=== PATIENT | male | born 1935 | race Caucasian/White ===

== ENCOUNTER 2016-07-30 20:12 | Inpatient (IN) | payer MEDICARE, MEDICAID ==
[~2016-07-30] VITALS: Ht 177.8 cm; Wt 82.4 kg
[~2016-07-30 20:12] MED LIST: ACET-171 PO; ACET325T51 PO; ASPI-973 PO; ATOR20TA PO; BENZ-12 PO; BISA10SU61 RC; CARB1TAB14 PO; CHOL500011 PO; DOCU-41 PO; FUR20 PO; GUAI473S22 PO; HYDR-4003 PO; IPRA0.2S51 PO; LORA0.5T PO; MAGN400O4 PO; METO25TA6 PO; MIRT15TA6 PO; MULT-620 PO; NA P133E23 RC; NIAC100T2 PO; PANT40TA3 PO; POTA20LI2 PO; PRAM0.5T3 PO; SALI45SP MT; SENN-133 PO; SPIR25TA3 PO; SPIR50TA2 PO; SUCR1ORA PO; TIZA2TAB3 PO; UBID1CAP3 PO; ZOF8 PO; [UNRECOGNIZED DRUG - OTHER] PO
--- NOTE | 2016-07-30 20:15 | ED.REPORT ---
HPI-Dyspnea / Wheezing Date of Service Jul 30, 2016 ED Provider: MD Cornelius This is an 80 year old male with a history of sleep apnea, HTN, CHF, and Parkinson's who is hemiplegic brought to the ED by EMS due to cough. Pt sent from [facility] after he appeared to be aspirating. Pt is awake but non-verbal, this is baseline. DNR/DNI. Nursing Notes Stated Complaint: COUGHING Nursing Notes Reviewed: Yes Allergies: Coded Allergies: diphenhydramine (Verified Allergy, Severe, ITCHY EYES AND THROAT SWELLING , 10/27/15) dipyridamole (Verified Allergy, Unknown, unknown, 10/27/15) Scheduled ([Med Plus 2.0]) 120 ML PO TID Acetaminophen (Acetaminophen) 500 Mg Tablet 1,000 MG PO BID Aspirin (Aspirin) 81 Mg Tablet 81 MG PO QAM Atorvastatin (Lipitor) 20 Mg Tablet 20 MG PO DAILY Carbidopa/Levodopa 25-100 mg (Carbidopa/Levodopa 25-100 mg) 1 Each Tablet 2 EACH PO 5XD Cholecalciferol (Vitamin D3) (Vitamin D3) 5,000 Unit Tablet 5,000 UNIT PO QPM Docusate Sodium (Colace) 100 Mg Capsule 100 MG PO QAM Furosemide (Furosemide) 20 Mg Tab 20 MG PO QAM Magnesium Hydroxide (Milk of Magnesia) 400 Mg/5 Ml Oral.susp 2 ML PO QAM Metoprolol Tartrate (Metoprolol Tartrate) 25 Mg Tablet 12.5 MG PO BID Mirtazapine (Mirtazapine) 15 Mg Tablet 15 MG PO HS Multivitamin with Minerals (Totalday Multiple) 1 Each Tablet.er 1 EACH PO QAM Niacin (Niacin) 100 Mg Tablet 100 MG PO QAM Pantoprazole DR (Pantoprazole DR) 40 Mg Tablet.dr 40 MG PO BID Potassium Chloride (Potassium Chloride) 20 Meq/15 Ml Liquid 10 MEQ PO TIDWM Pramipexole Dihydrochloride (Mirapex) 0.5 Mg Tablet 0.5 MG PO DAILY Saliva Stimulant Agents Comb.3 (Biotene Moisturizing Mouth) 44.3 Ml [place] [facility] 15 ML MT QID Spironolactone (Spironolactone) 50 Mg Tablet 50 MG PO QAM take with 25mg tab for total dose of 75mg daily Spironolactone (Spironolactone) 25 Mg Tablet 25 MG PO QAM take with 50mg tab for total dose of 75mg daily Sucralfate (Sucralfate) 1 Gm/10 Ml Oral.susp 1,000 MG PO ACHS Ubidecarenone/Vitamin E (Co Q-10 50 mg Softgel) 1 Each Capsule 1 EACH PO QAM Scheduled PRN Acetaminophen (Acetaminophen) 325 Mg Tablet 650 MG PO Q4H PRN PRN For Fever Benzonatate (Tessalon Perle) 100 Mg Capsule 100 MG PO BID PRN PRN For Cough Bisacodyl (Dulcolax Rectal) 10 Mg Supp.rect 10 MG RC DIRECTED PRN PRN For Constipation Docusate Sodium (Colace) 100 Mg Capsule 100 MG PO HS PRN PRN For Constipation Guaifenesin/Codeine Phosphate (Guaifenesin AC Cough Syrup) 473 Ml Liquid 5 ML PO QID PRN PRN For Cough Hydrocodone-Acetaminophen 5-325 mg (Hydrocodone-Acetaminophen 5-325 mg) 1 Each Tablet 1 EACH PO Q4H PRN PRN For Pain Ipratropium Ogden (Ipratropium [place] Inhalant Solution) 0.2 Mg/1 Ml Solution 1 ML PO QID PRN PRN For Shortness of Breath Lorazepam (Lorazepam) 0.5 Mg Tablet 0.5 MG PO QID PRN PRN For Anxiety or Agitation Magnesium Hydroxide (Milk of Magnesia) 400 Mg/5 Ml Oral.susp 30 ML PO DIRECTED PRN PRN For Constipation Na Phos,M-B/Na Phos,Di-Ba (Fleet Enema) 133 Ml Enema 133 ML RC DIRECTED PRN PRN For Constipation Ondansetron (Zofran) 8 Mg Tablet 8 MG PO QID PRN PRN For Nausea Sennosides (Senna) 8.6 Mg Tablet 17.2 MG PO HS PRN PRN For Constipation Tizanidine (Tizanidine) 2 Mg Tablet 2 MG PO TID PRN PRN For Spasm General Time Seen by MD: 20:15 Chief Complaint Cough Hx Obtained From: Patient, EMS Arrived By: Ambulance Sudden in Onset?: Yes Onset Occurred: Just prior to arrival Symptom Duration: Since onset Severity: Current: No pain currently Pertinent Negative: Pt denies other symptoms Recent Healthcare: No recent doctor visit, No recent hospitalization Similar Sx Previous: No Past Medical History Past Medical History Notes: DNR/DNI Past Medical History Parkinson's disease Hx of pneumoia Sleep apnea Hypertension CHF Hx of UTIs Hemiplegia Past Surgical History Reports: Angioplasty, CABG Reports: Pacemaker insertion Family History noncontributory Smoking History Never Smoker Social History Lives at [facility] Other Social History: Good social support, Local resident Ambulatory Status Independent Review of Systems Unable to Obtain ROS Patient condition Respiratory: Reports: Non-productive cough Physical Exam Initial Vital Signs Vital Signs (First) Date Time Temp Pulse Resp B/P Pulse Ox O2 Delivery O2 Flow Rate FiO2 07/30/16 20:18 36.8 76 21 138/73 99 Non-Rebreather 15 - Initial VS: Reviewed Head / Eyes: Atraumatic, Normocephalic, PERRL ENT: Mucous membranes moist, Conjunctiva normal, No scleral icterus Extremities: Vascular intact, Neuro intact, No swelling, No tenderness Skin: Warm, Dry, No cyanosis General/Constitutional: Awake Non-verbal and coughing, vomit present around mouth. Chronically ill-appearing. Neck: Atraumatic, Supple, No meningismus, Full range of motion, No swelling, Non-tender, No masses Diminished Breath Sounds: Positive: Decreased bilateral Cardiovascular: Heart rate NL, Regular rhythm, Heart sounds NL, Peripheral circulation NL Interpretation & Diagnostics Lab Results Interpretation Result Diagram: 07/30/16203007/30/162030 Test 07/30/16 20:15 07/30/16 20:31 Hold Purple Top Tube Received (Received) Hold Blue Top Tube Received (Received) Hold Red Top Tube Received (Received) Hold [place] Top Tube Received (Received) White Blood Count 12.0th/mm3 (3.8-10.1) Red Blood Count 5.77mil/mm3 (4.40-5.80) Hemoglobin 14.9g/dL (13.8-17.2) Hematocrit 46.8% (41.0-50.0) Mean Corpuscular Volume 81.1fL (81-100) Mean Corpuscular Hemoglobin 25.8pg (27.0-35.0) Mean Corpuscular Hemoglobin Concent 31.8% (32.0-37.0) Red Cell Distribution Width 16.3% (12.3-15.4) Platelet Count 218bil/L (150-400) Neutrophils (%) (Auto) 66.4% (40-74) Lymphocytes (%) (Auto) 19.2% (14-46) Monocytes (%) (Auto) 11.4% (4-12) Eosinophils (%) (Auto) 2.3% (0-5) Basophils (%) (Auto) 0.4% (0-3) Sodium Level 139mEq/L (134-144) Potassium Level 4.9mEq/L (3.5-5.2) Chloride Level 100mEq/L (97-108) Carbon Dioxide Level 23mmol/L (18-29) Blood Urea Nitrogen 24mg/dL (8-27) Creatinine 1.19mg/dL (0.76-1.27) Estimat Glomerular Filtration Rate 62mL/min (>59) Glucose Level 123mg/dL (60-99) Calcium Level 9.5mg/dL (8.5-10.1) Total Bilirubin 0.3mg/dL (0.0-1.2) Aspartate Amino Transf (AST/SGOT) 20U/L (0-50) Alanine Aminotransferase (ALT/SGPT) < 5U/L (0-44) Alkaline Phosphatase 116U/L (25-160) Total Protein 7.3g/dL (6.4-8.4) Albumin 3.8g/dL (3.4-5.0) X-Ray Chest Interpretation Chest Xray Interpretation: IMPRESSION: 1. Marked gaseous distention of the stomach. 2. Small right pleural effusion. 3. Pulmonary scar or a left lateral pulmonary mass. If further characterization is warranted, CT of the chest may be helpful. Dictated by: Savannah Barr M.D. on 07/30/2016 at 20:51 Approved by: Savannah Barr M.D. on 07/30/2016 at 20:54 Re-Eval/Medical Decision Med Decision/Clinical Course 80-year-old male with past medical history of Parkinson's disease, CHF, hemiplegia, hypertension, who is currently DO NOT RESUSCITATE and DO NOT INTUBATE brought in from skilled nursing after an aspiration event. Differential diagnosis includes but is not limited to aspiration versus pneumonia versus progression of chronic disease versus leukocytosis. Labs are remarkable for mild leukocytosis, normal CMP. Chest x-ray shows right-sided pleural effusion, which is likely secondary to aspiration. At this time, I will not start antibiotics, as he does not show signs of infection, though I believe he will likely develop aspiration pneumonia. For this reason, I have admitted him to the hospital for further monitoring and likely initiation of antibiotic treatment. He had his are aware and amenable to plan. Re-Evaluation/Progress #1: Time of Eval: 21:08 Re-Evaluation/Progress Note: Discussed patient care with spouse present in the room. Re-Evaluation/Progress #2: Time of Eval: 21:32 Re-Evaluation/Progress Note: Discussed need for admission with spouse present in the room. Consultation : Referral / Consult Name: Sandrine Cormier DO Consulted With: Hospitalist Call Returned at: 21:40 Conveyor Loader: Accepts admit Counseled Regarding: Diagnosis, Lab results, Need for follow-up, Need for admission Discharge & Departure Impression: Primary Impression: Aspiration into airway Encounter type: initial encounter Qualified Code: T17.908A - Unspecified foreign body in respiratory tract, part unspecified causing other injury, initial encounter Disposition: ADMITTED TO HOSPITAL Discharge Condition All VS Reviewed: Yes Condition: Stable Referrals: Denice Pedersen MD (PCP) Scribe Attestation Portions of this note were transcribed by Fany Meredith. I, Dr. Shields personally performed the history, physical exam and medical decision-making; I reviewed and confirmed the accuracy of the information in the transcribed note. Signed by: francine Newton. 07/30/2016, 22:00. Heather Shields MD Jul 30, 2016 20:15 FANY MEREDITH Jul 30, 2016 20:24
[2016-07-30 20:18] VITALS: BP 138/73; PULSE 76; RESP 21; O2SAT 99
[2016-07-30] MEDS ORDERED: Ondansetron 2 mg/mL 2 mL Inj IVPUSH ONE (20:20)
[2016-07-30 20:39] LABS: BASOPHILS % (AUTO) 0.4 % (0-3); EOSINOPHILS % (AUTO) 2.3 % (0-5); MONOCYTES % (AUTO) 11.4 % (4-12); Mean Corpuscular Hemoglobin 25.8 pg (27.0-35.0); Mean Corpuscular Volume 81.1 fL (81-100); NEUTROPHILS % (AUTO) 66.4 % (40-74); Platelet Count 218 bil/L (150-400)
--- NOTE | 2016-07-30 20:56 | DRSVH ---
PROCEDURE: X-RAY CHEST ONE VIEW, PORTABLE ([id number]) INDICATIONS: aspiration TECHNIQUE: One view of the chest was acquired. COMPARISON: [facility], CR, XR CHEST 1VW (PORTABLE), 11/05/2015, 17:18. FINDINGS: Surgical changes and devices: Patient is status post median sternotomy. Lungs and pleura: There is a small right pleural effusion. Focal scar or pulmonary radiopacity is pre sent within the lateral aspect of the left lower lung. Mediastinum: Mediastinal contours appear normal. Heart size is mildly enlarged. Bones and chest wall: No suspicious bony lesions. There is marked gaseous distention of the stomach. IMPRESSION: 1. Marked gaseous distention of the stomach. 2. Small right pleural effusion. 3. Pulmonary scar or a left lateral pulmonary mass. If further characterization is warranted, CT of t he chest may be helpful. Dictated by: Savannah Barr M.D. on 07/30/2016 at 20:51 Approved by: Savannah Barr M.D. on 07/30/2016 at 20:54
[2016-07-30 21:43] VITALS: BP 110/58; PULSE 63; RESP 18; O2SAT 92
[2016-07-30] MEDS ORDERED: Alum-Mag Hydrox-Simeth 30 mL Suspension PO PRN (21:45)
[2016-07-30] MEDS ORDERED: Ondansetron 2 mg/mL 2 mL Inj IVPUSH PRN (21:45)
[2016-07-30] MEDS ORDERED: Polyethylene Glycol (PEG) 17 Gm Powder PO PRN (21:45)
[2016-07-30 22:14] VITALS: BP 123/66; PULSE 64; RESP 18; O2SAT 92
[2016-07-30 23:46] VITALS: BP 122/61; PULSE 62; RESP 20; O2SAT 95
[2016-07-30 23:49] VITALS: BP 178/76; PULSE 68; RESP 24; O2SAT 91
[2016-07-30 23:57] VITALS: PULSE 85
[2016-07-31] VITALS (11 sets, daily range): BP systolic 117–143; BP diastolic 58–82; PULSE 75–92; RESP 16–20; O2SAT 94–96
[2016-07-31] MEDS ORDERED: HYDROcodone-APAP 5-325 mg Tablet PO PRN (00:25)
--- NOTE | 2016-07-31 00:31 | NUR ---
ADMIT Pt arrived on floor at 2345 via gurney from [facility]. Per , pt is total care with transferring, feeding, bathing, etc. Per , pt is oriented to self and place and knows the year. Transferred to bed via slide board. Unable to assess orientation at this time--pt is moaning continuously. Pt appears to not be in pain, though is constantly coughing. Suctioning PRN. Continuing care.
--- NOTE | 2016-07-31 00:52 | PCM.HPMED ---
Subjective Date of Service Jul 30, 2016 Primary Provider: Admitting Physician: Sandrine Cormier DO Primary Care Physician: Denice Pedersen MD Attending Physician: Sandrine Cormier DO Admit Status: From the Emergency Department Chief Complaint: Aspiration History of Present Illness: Patient is an 80 year old male with a history of Parkinson's disease, hemiplegia , CAD, HTN, and anemia. He presented to [facility] on 07/30/16 from [facility] where he is a permanent resident. Report given to the ED staff was that the patient had an episode of vomiting that he most likely aspirated. Additional history is limited as the patient is somnolent throughout this H&P. The patient 's is at the bedside but was not present for the incident. The report she received was that the patient had been coughing and wheezing, then had an episode of vomiting. The reports approximately 1 week history of congested -sounding cough. She was not informed of any fever or chills, no other episodes of vomiting or diarrhea. There has been a mild decrease in appetite over the last few days. He has a history of aspiration causing pneumonia. At baseline the patient is wheelchair bound with no use of his legs. He has also lost much of the use of his arms and is fed by others. He does eat regular food. His speech is quite slurred but he can communicate some. He does use 2L O2 at baseline. In the ED the patient is afebrile, heart 76, respiratory rate 21, blood pressure 138/73, and O2 saturation 99% on 15L via no-rebreather. Labs remarkable for WBC 12. Due to the patient's history of aspiration pneumonia, will be admitted for observation of development of pneumonia/pneumonitis. Review of Systems: A comprehensive review of systems was conducted with the patient and found to be negative except as above in the history of present illness. Allergies Coded Allergies: diphenhydramine (Verified Allergy, Severe, ITCHY EYES AND THROAT SWELLING , 10/27/15) dipyridamole (Verified Allergy, Unknown, unknown, 10/27/15) Home Medications From [facility] (07/25/16): Acetaminophen 650 mg every 4 hours as needed (NTE 3000mg in 24hours) Benzonatate 100 mg 2 times daily as needed Biotene Dry Mouth Oral Rinse mouthwash use 15ml and rinse mouth out 4 times daily Co Q-10 50 mg daily Docusate sodium 100 mg every day Guaifenesin AC 10 mg-100 mg/5 mL oral liquid take 5 milliliter by ORAL route every 4 hours as needed Hydrocodone 5 mg-acetaminophen 325 mg every 4 hours as needed for pain DuoNeb 0.5 mg-3 mg(2.5 mg base)/3 mL 4 times every day Lasix 20 mg every day Lorazepam 0.5 mg tablet 4 times every day as needed Metoprolol tartrate 12.5 mg 2 times every day Milk of Magnesia 400 mg/5 mL oral suspension take 2 ml by mouth daily for magnesium supplement Mirapex 0.5 mg tablet every bedtime for RLS Mirtazapine 30 mg every day before bedtime Multivitamin with minerals every day with food Niacin 100 mg every day with meals Omeprazole 20 mg every day before a meal Ondansetron 8 mg disintegrating tablet Q8H PRN Potassium chloride 40 mEq/15 mL oral liquid take 10 milliliter by oral route 3 times every day diluted in one-half glass (120 ml) of cold water or juice Rytary 48.75 mg-195 mg capsule,extended release take 3 capsule by oral route 3 times every day Sinemet 25 mg-100 mg tablet take 2 tablet by oral route 5 times every day Spironolactone 75 mg every day Tizanidine 2 mg 3 times daily as needed Vitamin D3 take 1 capsule by oral route every day PMH Parkinsons disease, Multiple system atrophy, Spastic hemiplegia affecting right dominant side Cervical dystonia Osteopenia History of TIA Benign essential hypertension Compression fracture of L2 Diverticulosis Congestive heart failure GERD Dementia Hyperlipidemia Depression BPH - Benign prostatic hypertrophy 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 Surgical History Dual chamber pacemaker placed 2010 CABG x 5 in 1989 Right arthroscopic knee surgery Cardiac cath - 1996 Cardiac cath with SUMA placed 2010 TURP Cataract extraction, bilateral Family History Brother - Parkinson's disease Three brothers with history of heart disease Father - MD in his 50s Mother - Parkinson's disease Social History Hx Alcohol Use: No Hx Substance Use: No Hx Tobacco Use: No Smoking Status: Never Smoker Living Arrangement: [facility] ([facility]) Exam Vital Signs Vital Sign - Last Date Time Temp Pulse Resp B/P Pulse Ox O2 Delivery O2 Flow Rate FiO2 07/30/16 22:14 64 18 123/66 92 Nasal Cannula 3 1/22/17 20:18 36.8 Exam Patient somnolent, no apparent distress Head atraumatic, normocephalic Mucus membranes dry, no oral thrush observed No cervical lymphadenopathy, neck supple, nontender No JVD noted Cardiac tones difficult to appreciate over loud sounds of breathing - appears to be in regular rate and rhythm with no murmur appreciated Lungs with coarse sounds heard throughout the anterior lung schaffer No abdominal tenderness, non-distended, normoactive bowel tones, soft Adams absent Radial pulses normal and equivalent bilaterally, unable to appreciate dorsalis pedis pulses bilaterally No cyanosis, clubbing or edema No ulcerations/open wounds; boots in place on feet to float heels in an effort to prevent ulceration Neuro testing cannot be done as patient is not awake and participating in exam Lab and Diagnostics Result Diagram: 07/30/16203007/30/162030 X-Rays, CTs and MRIs CXR: IMPRESSION: 1. Marked gaseous distention of the stomach. 2. Small right pleural effusion. 3. Pulmonary scar or a left lateral pulmonary mass. If further characterization is warranted, CT of the chest may be helpful. Dictated by: Savannah Barr M.D. on 07/30/2016 at 20:51 Assessment & Plan Patient is an 80 year old male with a history of Parkinson's disease, hemiplegia , CAD, HTN, and anemia. He presented to [facility] on 07/30/16 from [facility] where he is a permanent resident. Nursing noted an episode of vomiting tonight with high suspicion for aspiration. Patient has history of aspiration pneumonia. Admitted for observation and management. 1. Aspiration, acute, present on admission. - Patient with history of aspiration pneumonia. - Currently no change on chest x-ray. - Will begin Unasyn 1500 mg Q6H. - Continue to monitor chest x-ray, CBC, vitals. - Could consider speech therapy re-evaluation. - Continue supplemental O2 to maintain O2 saturation above 94%. Raman BARRON. 2. Parkinsons disease, chronic. - With multiple system atrophy, dementia, spastic hemiplegia affecting right dominant side, and cervical dystonia. - Dr. Dorian Gupta managing with Carbidopa-Levodopa, Mirapex, tizanidine and botox injections. - Will continue Sinemet 2 tablets five times daily, Mirapex HS, Tizanidine 2 mg PRN. 3. Hypertension, chronic, presume stable. - Continue metoprolol tartrate 12. mg BID, spironolactone 75 mg daily and Lasix 20 mg daily. - Will monitor BMP. 4. Depression, chronic, presume stable. - Continue mirtazapine 30 mg HS. 5. CAD s/p CABG, presume stable. - According to recent outpatient med list patient currently not taking anything for this. 6. GERD, chronic. - Continue pantoprazole 40 mg daily. 7. History of congestive heart failure, likely diastolic. - Last echo found from 2010 shows preserved EF. - Patient appears to be well compensated at this time. - Antiemetic available PRN. - Bowel regimen available PRN. - Tylenol available PRN mild pain, fever. - Hydrocodone-acetaminophen 5/325 mg available Q4 PRN pain. - Lorazepam available PRN anxiety/agitation. Patient admitted under observation status with expected length of stay less than 2 midnights for severity of present symptoms, complexities of treatment plan and risk for adverse events. PCP: Denice Pedersen MD Neurology: Dorian Gupta MD Resuscitation Status: DNR/DNI:Do Not Resuscitate/Intubate Attending Statement The patient was seen and examined together with house staff on 07/30/2016 and I agree with the history, exam and plan as outlined in the note above. copies to: Denice Pedersen MD, Jennifer E DO Jul 30, 2016 23:40 Sandrine Cormier DO Jul 31, 2016 01:33
[2016-07-31] MEDS ORDERED: UBID50TA PO (02:48)
[2016-07-31] MEDS ORDERED: OMEP20CA11 PO (03:02)
[2016-07-31] MEDS ORDERED: TAM75UDCAP PO (03:02)
[2016-07-31] MEDS ORDERED: 0.9% Sodium Chloride 250 ML ONE (03:13)
--- NOTE | 2016-07-31 03:15 | NUR ---
CALLED TO [facility] FOR PATIENT THAT HAD INCREASED SECRETIONS. PLACED NASAL TRUMPET. NT SUCTION WITH 14 LATVIAN.
[2016-07-31] MEDS: Ampicillin-Sulbactam Inj 1,500 MG in 0.9% Sodium Chloride 50 ML IV SCH ×3 (03:22→16:11)
[2016-07-31] MEDS ORDERED: Albuterol-Ipratropium 3 mL Inhalation Solution ONE (03:23)
[2016-07-31] MEDS ORDERED: SALI45SP MM (03:34)
[2016-07-31] MEDS ORDERED: POTA40LI2 PO (03:34)
[2016-07-31] MEDS ORDERED: LVCR25100 PO (03:36)
[2016-07-31] MEDS: SALIVA SUBSTITUTE PO SCH ×4 (05:41→21:11)
[2016-07-31] MEDS: Albuterol-Ipratropium 3 mL Inhalation Solution NEB SCH ×5 (07:18→20:24)
[2016-07-31 07:51] LABS: BASOPHILS % (AUTO) 0.1 % (0-3); EOSINOPHILS % (AUTO) 0 % (0-5); MONOCYTES % (AUTO) 6.2 % (4-12); Mean Corpuscular Hemoglobin 26.4 pg (27.0-35.0); Mean Corpuscular Volume 81.2 fL (81-100); Platelet Count 170 bil/L (150-400)
[2016-07-31 08:01] LABS: Magnesium 1.8 mg/dL (1.6-2.6)
[2016-07-31] MEDS ORDERED: Pantoprazole 40 mg ER24 Tablet PO SCH (08:30)
[2016-07-31] MEDS: Pantoprazole 40 mg ER24 Tablet PO SCH (08:30)
--- NOTE | 2016-07-31 09:11 | NUR ---
Social Work Initial Assessment: SW met with patient at bedside to discuss discharge plan. Patient unable to participate in assessment at this time. SW contacted patient Kimberly, who verified patient information. Patient is a 80 year old male admitted under observation status on 07/30/16 for aspiration. Patient payer as Medicare and [facility] secondary. Patient PCP as MD Pedersen. Patient is a resident of [facility] per and has resided at facility since 2015. Patient uses a wheelchair at facility. Patient states plan for patient to return back to facility at discharge. Choice list offered and declined. [place] contacted [facility], and left message with SNF rep to confirm if patient able to return back at discharge. Access provided. SW to follow. PLAN: Return back to [facility]. Patient is a group home resident. Access provided. SW to follow pending clinical course Mallory VALENTE Addendum: 07/31/16 at 09 by CLAUDE DE LUNA Amended: Links added. Addendum: 07/31/16 at 0919 by CLAUDE DE LUNA Patient accepted back to [facility] per SNF rep Elsie. STOREY to follow. Mallory Real
--- NOTE | 2016-07-31 12:22 | NUR ---
Case Management: IMM given and explained to pt's Kimberly at pt bedside at 11:00 am. Questions answered, copy provided. Original placed on hard chart. HELADIO Hansen RN
--- NOTE | 2016-07-31 16:09 | PCM.PNMED ---
Subjective Date of Service Jul 31, 2016 Subjective Patient was examined at bedside today. Patient's was present for the exam. Patient has limited ability to communicate as patient has Parkinson's with very severe slurred speech. The patient patient does not appear to be in any acute distress. Exam Vital Signs Vital Sign - Last Date Time Temp Pulse Resp B/P Pulse Ox O2 Delivery O2 Flow Rate FiO2 07/31/16 15:44 75 20 96 Nasal Cannula 4.50 07/31/16 12:31 37.9 143/73 Intake and Output 07/30/16 07/30/16 07/31/16 Cumulative From/Thru 15:00 23:00 07:00 07/31/16 00:10 - 07/31/16 06:28 Intake Total 82 ml 82 ml Balance 82 ml 82 ml Intake IV Total 82 ml 82 ml # Bowel Movements 1 1 Exam Physical Exam: GEN: Patient was awake, alert, in no acute distress HEENT: PERRLA, EOMI, Neck soft supple, trachea midline, nomocephalic/atraumatic CV: +S1/S2, RRR, Respiratory: Decreased breath sounds bilaterally most likely secondary to poor respiratory effort GI: Hypoactive bowel sounds, soft, compressible, patient appeared to grimace with palpation of the abdomen EXT: no c/c/e Skin: Warm and clammy IVs and Medications Medications Reviewed: Medications were reviewed in detail Medications Current Medications Al Hydrox/Mg Hydrox/Simethicone 30 ml Q6H PRN PO; Start 07/30/16 at 21:45 Ondansetron HCl 4 to 8 mg Q4H PRN IVPUSH; Start 07/30/16 at 21:45 Senna 17.2 mg BID PRN PO; Start 07/30/16 at 21:45 Polyethylene Glycol 17 gm DAILY PRN PO; Start 07/30/16 at 21:45 Albuterol/ Ipratropium 3 ml 3 ml QIDWA NEB Last administered on 07/31/16 15:44 ; Admin Dose 3 ML; Start 07/31/16 at 06:00 Ampicillin Sodium/ Sulbactam Sodium/ Sodium Chloride 50 ml @ 100 mls/hr Q6 IV Last administered on 07/31/16 07:40; Admin Dose 100 MLS/HR; Start 07/31/16 at 02:30 Acetaminophen 650 mg Q4H PRN PO; Start 07/31/16 at 00:25 Carbidopa/Levodopa 2 tablet 5XD PO; Start 07/31/16 at 06:00 Docusate Sodium 100 mg HS PRN PO; Start 07/31/16 at 00:25 Docusate Sodium 100 mg DAILY PRN PO; Start 07/31/16 at 00:25 Furosemide 20 mg DAILY PO; Start 07/31/16 at 08:30 Acetaminophen/ Hydrocodone Bitart 1 tablet Q4H PRN PO; Start 07/31/16 at 00:25 Lorazepam 0.5 mg QID PRN PO; Start 07/31/16 at 00:25 Metoprolol Tartrate 12.5 mg BID PO; Start 07/31/16 at 08:30 Mirtazapine 15 mg HS PO; Start 07/31/16 at 21:00 Pantoprazole 40 mg BID PO; Start 07/31/16 at 08:30; Stop 07/31/16 at 08:30; Status DC Pramipexole 0.5 mg DAILY PO; Start 07/31/16 at 08:30 Spironolactone 25 mg DAILY PO; Start 07/31/16 at 08:30; Stop 07/31/16 at 08:30; Status DC Spironolactone 50 mg DAILY PO; Start 07/31/16 at 00:25; Stop 07/31/16 at 01:30; Status DC Cyclobenzaprine HCl 5 mg TID PRN PO; Start 07/31/16 at 01:05 Pantoprazole 40 mg DAILY PO; Start 07/31/16 at 08:30 Spironolactone 75 mg DAILY PO; Start 07/31/16 at 08:30 Acetaminophen 650 mg 650 mg Q6H PRN RECTAL Last administered on 07/31/16t 12:40 ; Admin Dose 650 MG; Start 07/31/16 at 10:15 Sodium Chloride 1,000 ml @ 80 mls/hr [id number] IV; Start 07/31/16 at 15:55 Lab and Diagnostics Result Diagram: 07/31/16 0710 07/31/16 0710 X-Rays, CTs and MRIs CXR: IMPRESSION: 1. Marked gaseous distention of the stomach. 2. Small right pleural effusion. 3. Pulmonary scar or a left lateral pulmonary mass. If further characterization is warranted, CT of the chest may be helpful. Dictated by: Savannah Barr M.D. on 07/30/2016 at 20:51 Assessment & Plan Patient is an 80 year old male with a history of Parkinson's disease, hemiplegia , CAD, HTN, and anemia. Admitted for possible aspiration pneumonia Aspiration, acute, present on admission. -- Patient with history of aspiration pneumonia. -- Currently no change on chest x-ray will follow-up with CT -- Discontinue Continue Unasyn 1500 mg Q6H. -- We will start Zosyn every 12 as the patient does come from a nursing facility -- Continue to monitor labs -- Consult speech therapy re-evaluation. -- Continue supplemental O2 to maintain O2 saturation above 92%. -- Raman BARRON. Abdominal pain -- CT of the abdomen Parkinsons disease, chronic. -- With multiple system atrophy, dementia, spastic hemiplegia affecting right dominant side, and cervical dystonia. -- Dr. Dorian Gupta managing with Carbidopa-Levodopa, Mirapex, tizanidine and botox injections. -- Will continue Sinemet 2 tablets five times daily, Mirapex HS, Tizanidine 2 mg PRN. Hypertension, chronic, presume stable. -- Continue metoprolol tartrate 12. mg BID, spironolactone 75 mg daily and Lasix 20 mg daily. -- Will monitor BMP. Depression, chronic, presume stable. -- Continue mirtazapine 30 mg HS. CAD s/p CABG, presume stable. -- According to recent outpatient med list patient currently not taking anything for this. GERD, chronic. -- Continue pantoprazole 40 mg daily. History of congestive heart failure, likely diastolic. -- Last echo found from 2010 shows preserved EF. -- Patient appears to be well compensated at this time. -- Antiemetic available PRN. -- Bowel regimen available PRN. -- Tylenol available PRN mild pain, fever. -- Hydrocodone-acetaminophen 5/325 mg available Q4 PRN pain. -- Lorazepam available PRN anxiety/agitation. Disposition: The patient currently has an elevated white blood cell count consistent with infection. The patient does not seem to be responding well to Unasyn. Since the patient does come from a nursing facility will change the patient's antibiotic regimen to Zosyn. We will obtain CT of the chest and abdomen for further exploration. The patient has minimal capability of expressing himself. We will need to continue to monitor and treat. PCP: Denice Pedersen MD Neurology: Dorian Gupta MD Resuscitation Status: DNR/DNI:Do Not Resuscitate/Intubate Time spent Greater than 30 minutes Edith Ramos DO Jul 31, 2016 15:56
--- NOTE | 2016-07-31 16:58 | DRSVH ---
PROCEDURE: CT CHEST, ABDOMEN AND PELVIS WITH CONTRAST ([id number]) INDICATIONS: abdominal pain and possible pneumonia TECHNIQUE: After the administration of intravenous contrast, 5 mm thick sections acquired from the lung apices t o the symphysis. 5 mm thick coronal and sagittal reformats were acquired. Additional 7 mm thick cor onal maximum intensity projection (MIP) reformats acquired through the lungs. Optional 10-minute del ayed imaging may be performed from the kidneys to the bladder. For radiation dose reduction, the fol lowing was used: automated exposure control, adjustment of mA and/or kV according to patient size. COMPARISON: [facility], CT, CT ANGIO CHEST PE, 10/27/2015, 15:00. [facility] , CT, CT ABD PELVIS W CON, 10/27/2015, 15:00. FINDINGS: Image quality: Partially degraded by motion artifact. CHEST: Lungs: Calcified bilateral pleural plaques are present, as before. There is moderate bibasilar and m idlung airspace opacity, consistent with pneumonia. Chronic bilateral posterior inferior pleural thic kening is present. No pneumothorax or hemothorax. Central and peripheral airways appear patent and n ormal in caliber. Mediastinum: No mediastinal hematomas. Heart size is enlarged. There is calcification of the rehman ry vasculature. No pericardial effusion. Thoracic aorta and pulmonary arteries demonstrate normal s ize and enhancement. No mediastinal or hilar adenopathy. Esophagus is normal in caliber. No change in small hiatal hernia. Chest wall: Status post median sternotomy. No axillary or supraclavicular adenopathy. Thyroid gland is within normal limits. ABDOMEN: Solid organs: Liver and spleen are normal in size and enhancement, without lacerations. Gallbladder is within normal limits. Biliary system is non-dilated. Pancreas enhances normally. Calcifications within the pancreatic head and neck are present. No adrenal hematomas. Both kidneys enhance normall y, without hydronephrosis or lacerations. Peritoneum and bowel: No free fluid or air. Moderate amount of rectal stool is present. Unenhanced b owel loops otherwise demonstrate normal wall thickness and caliber. Appendix is not seen. No evidenc e of appendicitis. Nodes and vessels: No retroperitoneal or mesenteric adenopathy. Aorta and inferior vena cava are no rmal in size and enhancement. Miscellaneous: There is a small fat containing umbilical hernia. PELVIS: Genitourinary: Bladder wall thickness is normal. Miscellaneous: No inguinal hernias or adenopathy. Bones: Pelvic ring and hip joints appear intact. Bony cement injection at T12 has been performed. M oderate chronic L2 compression fracture is unchanged. Median sternotomy has been performed. No acute vertebral compression fractures. IMPRESSION: 1. Bilateral mid and lower lung pneumonia. 2. Asbestos related pleural disease. 3. Moderate amount of rectal stool. 4. Appendix not seen. No evidence of appendicitis. 5. Coronary artery disease. Cardiomegaly. 6. Small hiatal hernia. Dictated by: Manish Shelton M.D. on 07/31/2016 at 16:50 Approved by: Manish Shelton M.D. on 07/31/2016 at 16:56
[2016-07-31] MEDS: 0.9% Sodium Chloride 1,000 ML IV SCH (17:38)
--- NOTE | 2016-07-31 18:19 | NUR ---
CT scan Pt. transferred to CT scan at 1625. bed transfer in stable condition. Pt. returned at 1649 and appears to be doing well.
[2016-07-31] MEDS: Piperacillin-Tazo 3.375 Gm Inj 3.375 GM in Dextrose 5% Minibag Plus 50 ML IV SCH (21:07)
[2016-08-01] VITALS (10 sets, daily range): BP systolic 129–160; BP diastolic 60–84; PULSE 20–88; RESP 12–22; O2SAT 92–97
--- NOTE | 2016-08-01 01:39 | NUR ---
Alert Pt is alert. Non verbal. FELDT score is zero. Turned every two hours. Afebrile. Will cont to monitor
[2016-08-01] MEDS: 0.9% Sodium Chloride 1,000 ML IV SCH ×2 (04:20→17:04)
[2016-08-01 06:14] LABS: Mean Corpuscular Volume 82.7 fL (81-100)
[2016-08-01] MEDS: SALIVA SUBSTITUTE PO SCH ×4 (06:28→19:59)
[2016-08-01] MEDS: LORazepam 0.5 mg Tablet PO PRN (07:37)
[2016-08-01] MEDS: Piperacillin-Tazo 3.375 Gm Inj 3.375 GM in Dextrose 5% Minibag Plus 50 ML IV SCH ×2 (07:41→19:54)
[2016-08-01] MEDS: Albuterol-Ipratropium 3 mL Inhalation Solution NEB SCH ×3 (07:44→17:34)
[2016-08-01] MEDS: Pantoprazole 40 mg ER24 Tablet PO SCH (07:49)
--- NOTE | 2016-08-01 14:19 | NUR ---
Sarah Gonzalez can accept back with Dr. Pedersen to follow, pt is [facility]. SIDRA Thorne
--- NOTE | 2016-08-01 17:50 | NUR ---
alertness Pt appears to be much more alert this evening then he was this morning when I arrived. Pt able to say 1-2 words and respond to yes/no questions. Pt has been able to clear his secretions by coughing and not needing suction today. Pt is smiling, laughing and engaging with staff.
--- NOTE | 2016-08-01 19:12 | PCM.PNMED ---
Subjective Date of Service Aug 01, 2016 Subjective Patient was seen and examined today. Seemed more alert and able to answer questions with a clear now as opposed to his significant slurred and unintelligible speech today. Exam Vital Signs Vital Sign - Last Date Time Temp Pulse Resp B/P Pulse Ox O2 Delivery O2 Flow Rate FiO2 08/01/16 17:34 75 20 95 Nasal Cannula 2.00 08/01/16 17:09 36.8 160/66 Intake and Output 07/31/16 07/31/16 08/01/16 Cumulative From/Thru 15:00 23:00 07:00 07/31/16 00:10 - 08/01/16 06:50 Intake Total 80 ml 920 ml 1082 ml Balance 80 ml 920 ml 1082 ml Intake Oral 0 ml 0 ml 0 ml IV Total 80 ml 920 ml 1082 ml # Voids 1 2 3 # Bowel Movements 1 2 Exam Physical Exam: GEN: Patient was awake, alert, responding appropriately to questions HEENT: PERRLA, EOMI, Neck soft supple, trachea midline, nomocephalic/atraumatic CV: +S1/S2, RRR, no murmurs auscultated Respiratory: CTAB, no wheezes, rales, rhonchi GI: +bowel sounds x4, soft, compressible, non TTP EXT: no c/c/e Neuro: CN II-XII grossly intact Psych: mood and affect were at patient's baseline. IVs and Medications Medications Reviewed: Medications were reviewed in detail Medications Current Medications Al Hydrox/Mg Hydrox/Simethicone 30 ml Q6H PRN PO; Start 07/30/16 at 21:45 Ondansetron HCl 4 to 8 mg Q4H PRN IVPUSH; Start 07/30/16 at 21:45 Senna 17.2 mg BID PRN PO; Start 07/30/16 at 21:45 Polyethylene Glycol 17 gm DAILY PRN PO; Start 07/30/16 at 21:45 Albuterol/ Ipratropium 3 ml 3 ml QIDWA NEB Last administered on 08/01/16 17:34 ; Admin Dose 3 ML; Start 07/31/16 at 06:00 Ampicillin Sodium/ Sulbactam Sodium/ Sodium Chloride 50 ml @ 100 mls/hr Q6 IV Last administered on 07/31/16 16:11; Admin Dose 100 MLS/HR; Start 07/31/16 at 02:30; Stop 07/31/16 at 16:15; Status DC Acetaminophen 650 mg Q4H PRN PO; Start 07/31/16 at 00:25 Carbidopa/Levodopa 2 tablet 5XD PO Last administered on 08/01/16 17:08; Admin Dose 2 TABLET; Start 07/31/16 at 06:00 Docusate Sodium 100 mg HS PRN PO; Start 07/31/16 at 00:25 Docusate Sodium 100 mg DAILY PRN PO; Start 07/31/16 at 00:25 Furosemide 20 mg DAILY PO Last administered on 08/01/16 07:37; Admin Dose 20 MG ; Start 07/31/16 at 08:30 Acetaminophen/ Hydrocodone Bitart 1 tablet Q4H PRN PO Last administered on 08/01 07:38; Admin Dose 1 TABLET; Start 07/31/16 at 00:25 Lorazepam 0.5 mg QID PRN PO Last administered on 08/01/16 07:37; Admin Dose 0.5 MG; Start 07/31/16 at 00:25 Metoprolol Tartrate 12.5 mg BID PO Last administered on 08/01/16 07:36; Admin Dose 12.5 MG; Start 07/31/16 at 08:30 Mirtazapine 15 mg HS PO; Start 07/31/16 at 21:00 Pantoprazole 40 mg BID PO; Start 07/31/16 at 08:30; Stop 07/31/16 at 08:30; Status DC Pramipexole 0.5 mg DAILY PO Last administered on 08/01/16 07:38; Admin Dose 0.5 MG; Start 07/31/16 at 08:30 Spironolactone 25 mg DAILY PO; Start 07/31/16 at 08:30; Stop 07/31/16 at 08:30; Status DC Spironolactone 50 mg DAILY PO; Start 07/31/16 at 00:25; Stop 07/31/16 at 01:30; Status DC Cyclobenzaprine HCl 5 mg TID PRN PO; Start 07/31/16 at 01:05 Pantoprazole 40 mg DAILY PO; Start 07/31/16 at 08:30 Spironolactone 75 mg DAILY PO Last administered on 08/01/16 07:37; Admin Dose 75 MG; Start 07/31/16 at 08:30 Acetaminophen 650 mg 650 mg Q6H PRN RECTAL Last administered on 07/31/16 21:04 ; Admin Dose 650 MG; Start 07/31/16 at 10:15 Sodium Chloride 1,000 ml @ 80 mls/hr [id number] IV Last administered on 08/01/16 17:04; Admin Dose 80 MLS/HR; Start 07/31/16 at 15:55 Piperacillin Sod/ Tazobactam Sod/ Dextrose/Water 50 ml @ 12.5 mls/hr Q12 IV Last administered on 08/01/16 07:41; Admin Dose 12.5 MLS/HR; Start 07/31/16 at 20:30 Lab and Diagnostics Result Diagram: 08/01/16 0535 08/01/16 0535 X-Rays, CTs and MRIs CXR: IMPRESSION: 1. Marked gaseous distention of the stomach. 2. Small right pleural effusion. 3. Pulmonary scar or a left lateral pulmonary mass. If further characterization is warranted, CT of the chest may be helpful. Dictated by: Savannah Barr M.D. on 07/30/2016 at 20:51 Assessment & Plan Patient is an 80 year old male with a history of Parkinson's disease, hemiplegia , CAD, HTN, and anemia. Admitted for possible aspiration pneumonia Aspiration, acute, present on admission. -- Patient with history of aspiration pneumonia. -- Currently no change on chest x-ray will follow-up with CT -- Discontinue Continue Unasyn 1500 mg Q6H. -- Continue Zosyn every 12 as the patient does come from a nursing facility -- Continue to monitor labs -- Consult speech therapy re-evaluation. -- Continue supplemental O2 to maintain O2 saturation above 92%. -- Raman BARRON. Abdominal pain -- CT of the abdomen Parkinsons disease, chronic. -- With multiple system atrophy, dementia, spastic hemiplegia affecting right dominant side, and cervical dystonia. -- Dr. Dorian Gupta managing with Carbidopa-Levodopa, Mirapex, tizanidine and botox injections. -- Will continue Sinemet 2 tablets five times daily, Mirapex HS, Tizanidine 2 mg PRN. Hypertension, chronic, presume stable. -- Continue metoprolol tartrate 12. mg BID, spironolactone 75 mg daily and Lasix 20 mg daily. -- Will monitor BMP. Depression, chronic, presume stable. -- Continue mirtazapine 30 mg HS. CAD s/p CABG, presume stable. -- According to recent outpatient med list patient currently not taking anything for this. GERD, chronic. -- Continue pantoprazole 40 mg daily. History of congestive heart failure, likely diastolic. -- Last echo found from 2010 shows preserved EF. -- Patient appears to be well compensated at this time. -- Antiemetic available PRN. -- Bowel regimen available PRN. -- Tylenol available PRN mild pain, fever. -- Hydrocodone-acetaminophen 5/325 mg available Q4 PRN pain. -- Lorazepam available PRN anxiety/agitation. Disposition: The patient presented with leukocytosis from possible aspiration pneumonia. The patient was started on Unasyn but did not seem to be responding well to treatment. Zosyn was started and the patient seemed to respond well. The patient was more alert and back to his baseline status according to the . The patient's white blood cell count decreased significantly from 20.3 down to 10.3. The patient is progressing well and will most likely be discharged home tomorrow on oral antibiotics. PCP: Denice Pedersen MD Neurology: Dorian Gupta MD Resuscitation Status: DNR/DNI:Do Not Resuscitate/Intubate Edith Ramos DO Aug 01, 2016 19:12
[2016-08-02] VITALS (11 sets, daily range): BP systolic 102–126; BP diastolic 56–71; PULSE 67–97; RESP 14–20; O2SAT 92–99
--- NOTE | 2016-08-02 03:50 | NUR ---
Resting night watching movies. Patient has had a restful evening watching moving. Patient has been sitting in a semi fowlers position and maintaining saturations well. Patients lungs are still course and diminished in the bases. Patient remains on 3lpm via nasal canula. Patient is A/Ox2. Patient knows where he is and his name. Patient is still answering questions very slowly and his speech remains muffled. Patient still has a mild tremor to bilateral upper extremities.
[2016-08-02] MEDS: 0.9% Sodium Chloride 1,000 ML IV SCH ×2 (05:38→17:53)
[2016-08-02] MEDS: SALIVA SUBSTITUTE PO SCH ×4 (06:30→21:08)
[2016-08-02] MEDS: Albuterol-Ipratropium 3 mL Inhalation Solution NEB SCH ×3 (06:34→16:50)
--- NOTE | 2016-08-02 06:34 | NUR ---
Refused lab. Patient refused to let roofing laborer draw AM labs this morning.
[2016-08-02] MEDS: Pantoprazole 40 mg ER24 Tablet PO SCH (08:30)
[2016-08-02] MEDS: Piperacillin-Tazo 3.375 Gm Inj 3.375 GM in Dextrose 5% Minibag Plus 50 ML IV SCH ×2 (08:37→21:05)
[2016-08-02 11:18] LABS: Mean Corpuscular Hemoglobin 25.8 pg (27.0-35.0); Mean Corpuscular Volume 82.4 fL (81-100)
--- NOTE | 2016-08-02 13:50 | NUR ---
Social Work: Readiness for d/c Data: Pt is on day 3 of hospitalization. EMR reviewed. Pt discussed in rounds. MD states pt likely to d/c tomorrow. MD states pt will d/c with [facility]. POLE FRAME CONSTRUCTION WORKER spoke with UR specialist who states the SNF will be able to take this back. POLE FRAME CONSTRUCTION WORKER will continue to follow. Assessment: LTC pt at [facility]. Plan: Pt will d/c back to [facility]. POLE FRAME CONSTRUCTION WORKER will continue to follow. states pt likely to d/c tomorrow. SIDRA Menjivar
[2016-08-03] VITALS (13 sets, daily range): BP systolic 129–158; BP diastolic 66–80; PULSE 67–97; RESP 15–22; O2SAT 71–96
--- NOTE | 2016-08-03 00:11 | PCM.PNMED ---
Subjective Date of Service Aug 03, 2016 Subjective Patient is more responsive than he has been in actually cracking jokes. His speech is still very slow and deliberate. Exam Vital Signs Vital Sign - Last Date Time Temp Pulse Resp B/P Pulse Ox O2 Delivery O2 Flow Rate FiO2 08/02/16 21:21 97 18 96 Nasal Cannula 2.00 08/02/16 20:25 36.5 102/56 Intake and Output 08/02/16 08/02/16 08/03/16 Cumulative From/Thru 15:00 23:00 07:00 07/31/16 00:10 - 08/02/16 18:01 Intake Total 1214 ml 2296 ml Balance 1214 ml 2296 ml Intake Oral 200 ml 200 ml IV Total 1014 ml 2096 ml # Voids 3 8 # Bowel Movements 2 Exam General: Patient is resting comfortably in no apparent distress. HEENT: Head is atraumatic normocephalic. Eyes: Pupils are equally round and reactive to light and accommodation. Extraocular muscles are intact. Sclera are white anicteric. Subconjunctival mucosa is pink. Ears and nose are unremarkable. Oropharynx: There is no mucosal lesions, there is no thrush, there is no pharyngitis. Neck: Is supple, there are no nodes, or masses, or tenderness. Chest: Is clear to auscultation and percussion. There are no rales, rhonchi, wheezes or rubs. Heart: Rate, rhythm is regular. There is no murmur, rub or gallop. Abdomen: Good bowel sounds are present. Abdomen is soft, nontender, no organomegaly or masses were appreciated. Extremities: Are symmetrical and well perfused. There is no edema, there is no cellulitis, no rash. Neurologic: There are no focal neurological deficits. Cranial nerves II through XII are intact. There are no sensory or motor deficits. Psychiatric: Patients mood is calm and shows no sign of agitation. Genital: Deferred Rectal: Deferred Lab and Diagnostics Result Diagram: 08/02/16 1105 08/02/16 1105 X-Rays, CTs and MRIs CXR: IMPRESSION: 1. Marked gaseous distention of the stomach. 2. Small right pleural effusion. 3. Pulmonary scar or a left lateral pulmonary mass. If further characterization is warranted, CT of the chest may be helpful. Dictated by: Savannah Barr M.D. on 07/30/2016 at 20:51 Assessment & Plan Patient is an 80 year old male with a history of Parkinson's disease, hemiplegia , CAD, HTN, and anemia. Admitted for possible aspiration pneumonia Aspiration, acute, present on admission. -- Patient with history of aspiration pneumonia. -- Currently no change on chest x-ray will follow-up with CT -- Discontinue Unasyn 1500 mg Q6H. -- Continue Zosyn every 12 as the patient does come from a nursing facility -- Continue to monitor labs -- Consult speech therapy re-evaluation. -- Continue supplemental O2 to maintain O2 saturation above 92%. -- Raman BARRON. Abdominal pain -- CT of the abdomen Parkinsons disease, chronic. -- With multiple system atrophy, dementia, spastic hemiplegia affecting right dominant side, and cervical dystonia. -- Dr. Dorian Gupta managing with Carbidopa-Levodopa, Mirapex, tizanidine and botox injections. -- Will continue Sinemet 2 tablets five times daily, Mirapex HS, Tizanidine 2 mg PRN. Hypertension, chronic, presume stable. -- Continue metoprolol tartrate 12. mg BID, spironolactone 75 mg daily and Lasix 20 mg daily. -- Will monitor BMP. Depression, chronic, presume stable. -- Continue mirtazapine 30 mg HS. CAD s/p CABG, presume stable. -- According to recent outpatient med list patient currently not taking anything for this. GERD, chronic. -- Continue pantoprazole 40 mg daily. History of congestive heart failure, likely diastolic. -- Last echo found from 2010 shows preserved EF. -- Patient appears to be well compensated at this time. -- Antiemetic available PRN. -- Bowel regimen available PRN. -- Tylenol available PRN mild pain, fever. -- Hydrocodone-acetaminophen 5/325 mg available Q4 PRN pain. -- Lorazepam available PRN anxiety/agitation. Disposition: The patient presented with leukocytosis from possible aspiration pneumonia. The patient was started on Unasyn but did not seem to be responding well to treatment. Zosyn was started and the patient seemed to respond well. The patient was more alert and back to his baseline status according to the . The patient's white blood cell count decreased significantly from 20.3 down to 10.3. The patient is progressing well and will most likely be discharged in the next 24-48 hrs. PCP: Denice Pedersen MD Neurology: Dorian Gupta MD Pain Evaluation: Adequate Pain Control GI Prophylaxis: Proton Pump Inhibitor VTE Prophylaxis: Sub-Q Heparin (Unfractionated) VTE Mechanical Devices: Intermittant Pneumatic CD Resuscitation Status: DNR/DNI:Do Not Resuscitate/Intubate Thuan Simmons MD Aug 03, 2016 00:11
[2016-08-03] MEDS: SALIVA SUBSTITUTE PO SCH ×4 (02:44→22:27)
[2016-08-03] MEDS ORDERED: Albuterol 2.5 mg/3 mL Inhalation Solution NEB ONE (03:09)
[2016-08-03] MEDS: LORazepam 0.5 mg Tablet PO PRN (03:28)
[2016-08-03] MEDS ORDERED: Albuterol 2.5 mg/3 mL Inhalation Solution NEB PRN (03:40)
--- NOTE | 2016-08-03 06:35 | NUR ---
Agitation Pt became agitated during the night around 0328, Pt unable to verbalize what he wanted, Pt restless. Pt medicated with Ativan and Tylenol. Pt calmed down and rested for the rest of the night.
[2016-08-03 06:54] LABS: BASOPHILS % (AUTO) 0.1 % (0-3); EOSINOPHILS % (AUTO) 1.1 % (0-5); MONOCYTES % (AUTO) 6.9 % (4-12); Mean Corpuscular Hemoglobin 25.7 pg (27.0-35.0); Mean Corpuscular Volume 82.8 fL (81-100); NEUTROPHILS % (AUTO) 77.2 % (40-74); Platelet Count 146 bil/L (150-400)
[2016-08-03 07:14] LABS: Magnesium 1.8 mg/dL (1.6-2.6); Phosphorus 3.5 mg/dL (2.5-4.9)
[2016-08-03] MEDS: Albuterol-Ipratropium 3 mL Inhalation Solution NEB SCH ×4 (08:20→21:12)
[2016-08-03] MEDS: Piperacillin-Tazo 3.375 Gm Inj 3.375 GM in Dextrose 5% Minibag Plus 50 ML IV SCH ×2 (09:09→21:45)
[2016-08-03] MEDS: Heparin 5,000 Unit/mL Inj SUBQ SCH ×2 (09:10→20:30)
[2016-08-03] MEDS ORDERED: Magnesium Sulf 2 Gm/50mL Water 2 GM in IV Premix 1 EACH IV ONE (09:25)
[2016-08-03] MEDS: Potassium Chloride 20 mEq SR Tablet PO SCH ×2 (09:30→20:30)
[2016-08-03] MEDS: 0.9% Sodium Chloride 1,000 ML IV SCH (10:02)
[2016-08-03] MEDS: Pantoprazole 40 mg ER24 Tablet PO SCH (12:25)
--- NOTE | 2016-08-03 13:14 | NUR ---
NUTRITION ASSESSMENT: ASSESS: Pt is an 80yo M admitted for aspiration pneumonia. He has a history of Parkinson's. Pt has been on a pureed diet for the last couple days with variable PO at bites-50%, however intake has not been recorded well. ST re-evaluated pt today and downgraded his diet to Stimulation due to being lethargic. PMHX: Parkinson's, TIA, CHF, Dementia, HLD, CAD LABS: Reviewed. Na 147, K 3.4, Cl 111, Ca 8.4, Alb 3.0 MEDS: Reviewed. Lasix GI: BMx1 08/01 SKIN: Asher 14 CURRENT WTS: 84.7kg, BMI 26.7kg/m2 DIET: Stimulation per ST EST. NEEDS: Kcals: 2120-2540kcal/day (25-30kcal/kg) Pro: 85-100g/day (1.0-1.2g/kg) NUTRITION DIAGNOSIS: 1.) Chew/swallow difficulty related to chronic disease as evidence by pt with Parkinson's and need for dysphagia diet. 2.) Inadequate oral intake related to increased weakness/lethargic as evidence by variable PO and need for stimulation diet NUTRITION INTERVENTION: 1.) Continue diet per ST 2.) Once diet is advanced from stimulation, will evaluate need for supplements/snack MONITOR / EVAL: Diet advance, ST, PO intake, labs, wt, POC, nutrition status. Will continue to monitor per high nutrition risk guidelines
--- NOTE | 2016-08-03 13:16 | NUR ---
PO meds Patient somnolent this morning and was not alert enough to safely take PO medication. Medications were administered around noon when patient was more alert, meds were crushed in pudding per speech therapy. Patient needed lots of cueing to open mouth and swallow medication.
--- NOTE | 2016-08-03 18:09 | NUR ---
Nutrition/Palliative Care Dr. Simmons had lengthy discussion with patient and patients family regarding the patients wishes as his Parkinson progresses. Patient has been having difficulty swallow and is currently on a STIM diet which does not provide adequate nutrition. Patient and family are in agreement that patient does not want a feeding tube of any kind. Dr. Simmons talked with family regarding involving the palliative care team and family agreed that would be a good idea.
[2016-08-03] MEDS: 0.9% NaCl + KCl 20 mEq/L 1,000 ML IV SCH (21:45)
[2016-08-04] VITALS (13 sets, daily range): BP systolic 127–147; BP diastolic 67–78; PULSE 67–88; RESP 16–22; O2SAT 94–97
--- NOTE | 2016-08-04 00:47 | PCM.PNMED ---
Subjective Date of Service Aug 04, 2016 Subjective Patient appears slightly less responsive than yesterday and the patient's believes much less responsive than Sunday. Exam Vital Signs Vital Sign - Last Date Time Temp Pulse Resp B/P Pulse Ox O2 Delivery O2 Flow Rate FiO2 08/04/16 00:11 37.4 71 17 143/76 96 Nasal Cannula 2.00 Intake and Output 08/03/16 08/03/16 08/04/16 Cumulative From/Thru 15:00 23:00 07:00 07/31/16 00:10 - 08/04/16 00:11 Intake Total 675 ml 3784 ml Balance 675 ml 3784 ml Intake Oral 200 ml IV Total 675 ml 3584 ml # Voids 3 13 # Bowel Movements 2 Exam General: Patient is resting comfortably in no apparent distress. Patient remains alert but is having more difficulty with his speech today. HEENT: Head is atraumatic normocephalic. Eyes: Pupils are equally round and reactive to light and accommodation. Extraocular muscles are intact. Sclera are white anicteric. Subconjunctival mucosa is pink. Ears and nose are unremarkable. Oropharynx: There is no mucosal lesions, there is no thrush, there is no pharyngitis. Neck: Is supple, there are no nodes, or masses, or tenderness. Chest: Is clear to auscultation and percussion. There are no rales, rhonchi, wheezes or rubs. Heart: Rate, rhythm is regular. There is no murmur, rub or gallop. Abdomen: Good bowel sounds are present. Abdomen is soft, nontender, no organomegaly or masses were appreciated. Extremities: Are symmetrical and well perfused. There is no edema, there is no cellulitis, no rash. Patient exhibits an intention tremor. Neurologic: There are no focal neurological deficits. Cranial nerves II through XII are intact. There are no sensory or motor deficits. Psychiatric: Patients mood is calm and shows no sign of agitation. Genital: Deferred Rectal: Deferred Lab and Diagnostics Result Diagram: 08/03/1661408/03/16614 X-Rays, CTs and MRIs CXR: IMPRESSION: 1. Marked gaseous distention of the stomach. 2. Small right pleural effusion. 3. Pulmonary scar or a left lateral pulmonary mass. If further characterization is warranted, CT of the chest may be helpful. Dictated by: Savannah Barr M.D. on 07/30/2016 at 20:51 Assessment & Plan Patient is an 80 year old male with a history of rapidly progressive Parkinson' s disease, hemiplegia, CAD, HTN, and anemia. Admitted for possible aspiration pneumonia Aspiration, acute, present on admission. -- Patient with history of aspiration pneumonia. -- Patient's diet is now restricted to the point where he will likely not meet his daily caloric requirements -- Currently no change on chest x-ray will follow-up with CT -- Discontinued Unasyn 1500 mg Q6H. -- Continue Zosyn every 12 as the patient does come from a nursing facility -- Continue to monitor labs -- Consult speech therapy re-evaluation. Patient has been reduced to a stim diet. -- Continue supplemental O2 to maintain O2 saturation above 92%. -- DuoNeb QIKevinWA. Abdominal pain -- CT of the abdomen Parkinsons disease, chronic, however rapidly progressive. -- With multiple system atrophy, dementia, spastic hemiplegia affecting right dominant side, and cervical dystonia. -- Dr. Dorian Gupta managing with Carbidopa-Levodopa, Mirapex, tizanidine and botox injections. -- Will continue Sinemet 2 tablets five times daily, Mirapex HS, Tizanidine 2 mg PRN. Hypertension, chronic, presume stable. -- Continue metoprolol tartrate 12. mg BID, spironolactone 75 mg daily and Lasix 20 mg daily. -- Will monitor BMP. Depression, chronic, presume stable. -- Continue mirtazapine 30 mg HS. CAD s/p CABG, presume stable. -- According to recent outpatient med list patient currently not taking anything for this. GERD, chronic. -- Continue pantoprazole 40 mg daily. History of congestive heart failure, likely diastolic. -- Last echo found from 2010 shows preserved EF. -- Patient appears to be well compensated at this time. -- Antiemetic available PRN. -- Bowel regimen available PRN. -- Tylenol available PRN mild pain, fever. -- Hydrocodone-acetaminophen 5/325 mg available Q4 PRN pain. -- Lorazepam available PRN anxiety/agitation. Disposition: The patient presented with leukocytosis from possible aspiration pneumonia. The patient was started on Unasyn but did not seem to be responding well to treatment. Zosyn was started and the patient seemed to respond well. The patient is not quite as well as he was 2 days ago according to the patient' s . The patient's white blood cell count decreased significantly from 20.3 down to 8.4. I had an Advanced Care Planning discussion for 30 minutes with the patient, the patient's and the patient's son. The daughter could not be in attendance that she is in [place]. The explains to me that the patient's Parkinson's disease has been unusually progressive. As the patient's diet has been heavily restricted lower than what would likely be able to meet his daily caloric requirement. I asked the patient who is fully awake and alert and in his right mind if he would like a feeding tube placed and he adamantly said no several times when asked questions in several different ways. This was clearly evident to both the patient's and the patient's son. I recommended that the patient have a palliative care consultation and potentially have a hospice evaluation as his condition will only worsen over time despite our best efforts at keeping him healthy. The and the patient's son agree with this plan. PCP: Denice Pedersen MD Neurology: Dorian Gupta MD Pain Evaluation: Adequate Pain Control GI Prophylaxis: Proton Pump Inhibitor VTE Prophylaxis: Sub-Q Heparin (Unfractionated) VTE Mechanical Devices: Intermittant Pneumatic CD Resuscitation Status: DNR/DNI:Do Not Resuscitate/Intubate Thuan Simmons MD Aug 04, 2016 00:47
--- NOTE | 2016-08-04 05:46 | NUR ---
Shift Note Assume pt care at 1900, pt alert, responding with yes and no, pm and am meds held d/t pt increase with coughing, unasfe to swallow, pt also unable to follow cues with opening his mouth, on q2hrs turn,02 at 2l/min, continues pulse ox on,q1 checks done throughout night.
[2016-08-04] MEDS: Albuterol-Ipratropium 3 mL Inhalation Solution NEB SCH ×4 (06:00→20:50)
[2016-08-04] MEDS: SALIVA SUBSTITUTE PO SCH ×4 (06:03→21:45)
[2016-08-04 07:36] LABS: BASOPHILS % (AUTO) 0.3 % (0-3); EOSINOPHILS % (AUTO) 2.2 % (0-5); MONOCYTES % (AUTO) 8.1 % (4-12); Mean Corpuscular Hemoglobin 25.8 pg (27.0-35.0); Mean Corpuscular Volume 83.1 fL (81-100); NEUTROPHILS % (AUTO) 75.7 % (40-74); Platelet Count 158 bil/L (150-400)
[2016-08-04 07:50] LABS: Magnesium 1.9 mg/dL (1.6-2.6); Phosphorus 3.1 mg/dL (2.5-4.9)
[2016-08-04] MEDS: Pantoprazole 4 mg/mL 10 mL Inj IVPUSH SCH (08:42)
[2016-08-04] MEDS: Potassium Chloride 20 mEq SR Tablet PO SCH ×3 (08:42→20:30)
[2016-08-04] MEDS: Heparin 5,000 Unit/mL Inj SUBQ SCH ×2 (08:44→20:17)
[2016-08-04] MEDS: Piperacillin-Tazo 3.375 Gm Inj 3.375 GM in Dextrose 5% Minibag Plus 50 ML IV SCH ×2 (09:09→20:15)
[2016-08-04] MEDS: 0.9% NaCl + KCl 20 mEq/L 1,000 ML IV SCH (11:35)
--- NOTE | 2016-08-04 12:04 | DRSVH ---
PROCEDURE: X-RAY CHEST ONE VIEW, PORTABLE ([id number]) INDICATIONS: Follow up for effusion +/- Mass TECHNIQUE: One view of the chest was acquired. COMPARISON: [facility], CR, XR CHEST 1VW (PORTABLE), 07/30/2016, 20:20. [facility], CT, CT CHEST ABD PELVIS W CON, 07/31/2016, 16:38. FINDINGS: Surgical changes and devices: Post median sternotomy and CABG. Stable positioning of right cardiac p acer.. Lungs and pleura: Lung volumes are low. There are increase airspace opacities opacity in mid right chanel ng and both lung bases. No pneumothorax. Mediastinum: Mediastinal contours appear normal. Heart size is normal. Bones and chest wall: Compression fracture in upper lumbar spine with vertebroplasty. Overlying soft tissues appear unremarkable. IMPRESSION: 1. Increase airspace opacities in the mid right lung and both lung bases, suspicious for pneumonia. D ifferential diagnosis include pulmonary edema and superimposed atelectasis. Recommend clinical correl ation. Dictated by: Navjot Vilchis RRA Interpreted: Lorraine Madrid MD on 08/04/2016 at 12:01 Transcribed by: SHRAVAN on 08/04/2016 at 12:03 Approved by: Lorraine Madrid M.D. on 08/04/2016 at 12:11
--- NOTE | 2016-08-04 13:13 | NUR ---
NUTRITION FOLLOW-UP: ASSESS: Pt is an 80yo M admitted for aspiration pneumonia. He has a history of Parkinson's. Pt has been on a pureed diet for the last couple days with variable PO at bites-50%, however intake has not been recorded well. ST currently has pt on stimulation diet but per RN note, pt has not been able to follow commands to swallow so he has not been able to tolerate any of the diet. Pt does not want nutrition support. PMHX: Parkinson's, TIA, CHF, Dementia, HLD, CAD LABS: Reviewed. Na 147, cl 110, alb 3.1 MEDS: Reviewed. Lasix GI: BMx1 08/01 SKIN: Asher 14 CURRENT WTS: 82.4kg, BMI 26.1kg/m2, admit wt 88kg DIET: Stimulation per ST, minimal PO EST. NEEDS: Kcals: 2120-2540kcal/day (25-30kcal/kg) Pro: 85-100g/day (1.0-1.2g/kg) NUTRITION DIAGNOSIS: 1.) Chew/swallow difficulty related to chronic disease as evidence by pt with Parkinson's and need for dysphagia diet. --PERSISTS 2.) Inadequate oral intake related to increased weakness/lethargic as evidence by variable PO and need for stimulation diet-PERSISTS NUTRITION INTERVENTION: 1.) Continue diet per ST. Will add Magic Cups to all trays while on stim diet 2.) Once diet is advanced from stimulation, recommend adding high kcal/pro supplements MONITOR / EVAL: Diet advance, ST, PO intake, labs, wt, POC, nutrition status. Will continue to monitor per high nutrition risk guidelines
--- NOTE | 2016-08-04 13:38 | PCM.CONPAL ---
Date of Service Aug 04, 2016 Date of Hospital Admission: Jul 30, 2016 at 23:17 Date of Palliative Consult: Aug 04, 2016 Requesting Provider: Thuan Simmons MD Reason Palliative Care Consult: Goals of Care Discussion Hospital Unit @time of consult: Other (MOC) Palliative Care Recommendation 80-year-old gentleman with recurrent aspiration pneumonia in the setting of severe, rapidly progressive Parkinson's disease. Multiple additional medical comorbidities as outlined below. Palliative medicine consulted to assist patient and family and determination of goals of care. Patient's had requested palliative/hospice information. Summary of palliative recommendations: -Symptom management (Pain/other)- continued management per medical/hospitalist team. In terms of general comfort, the patient and his indicated that the thing that would make him happiest would be if he could eat or drink whatever he wants. We discussed in detail the risk and complications of aspiration, but the patient and his both indicate that they are willing to accept such risks. He was extremely thankful and expressed xuan when I gave him some ice chips. I have written orders for diet without restrictions. The patient and his both staunchly refused to consider artificial nutrition/nasogastric feeding/PEG tube placement. If he would suffer significant aspiration event, expectation would be that he transition to comfort care. Patient's had a number of other questions about his current treatments, potential further treatments at [facility], etc. written in a notebook and we reviewed these and talked about them as well. -DPOA/Advanced Directives/POLST- DO NOT RESUSCITATE/DO NOT INTUBATE per previous documentation. Considering transition to comfort/hospice care- hospice informational visit is set for later this afternoon. I discussed the nature of hospice with her, answered questions she had. Patient's will consider options, discuss further with the patient and their son and daughter and expect that sometime in the near future will make decision to transition to comfort/hospice care. Tentative disposition will be returned to [facility] to SNF when ready- possibly with hospice support. -Family/emotional support- strong family support. Patient Goals: 1. Patient and his want to be told the truth about his illness, even if it is unpleasant. 2. Patient and his would like to be told prognosis when it can be predicted , to better guide treatment decisions. Additional Medical Diagnoses with primary management by Hospitalist team include : Aspiration, acute, present on admission. Abdominal pain Parkinsons disease, chronic, however rapidly progressive. Hypertension, chronic, presume stable. Depression, chronic, presume stable. CAD s/p CABG, presume stable. GERD, chronic. History of congestive heart failure, likely diastolic. Problems: End of Life Preferences DO NOT RESUSCITATE/DO NOT INTUBATE Goals of Care Comfort and reasonable support Disposition Probably return to SNF in the next several days Resuscitation Status Resuscitation Status: DNR/DNI:Do Not Resuscitate/Intubate . Pain: None Symptom management: Anxiety, Dyspnea Pt History History of Present Illness Per admission H&P: Patient is an 80 year old male with a history of Parkinson's disease, hemiplegia , CAD, HTN, and anemia. He presented to [facility] on 07/30/16 from [facility] where he is a permanent resident. Report given to the ED staff was that the patient had an episode of vomiting that he most likely aspirated. Additional history is limited as the patient is somnolent throughout this H&P. The patient 's is at the bedside but was not present for the incident. The report she received was that the patient had been coughing and wheezing, then had an episode of vomiting. The reports approximately 1 week history of congested -sounding cough. She was not informed of any fever or chills, no other episodes of vomiting or diarrhea. There has been a mild decrease in appetite over the last few days. He has a history of aspiration causing pneumonia. At baseline the patient is wheelchair bound with no use of his legs. He has also lost much of the use of his arms and is fed by others. He does eat regular food. His speech is quite slurred but he can communicate some. He does use 2L O2 at baseline. Treated appropriately with IV antibiotics, etc. with slow improvement. Significantly disabled by his Parkinson's. Recognition of swallow dysfunction with high risk of recurrent aspiration led to conversations regarding goals of care and palliative medicine was consulted to assist patient and family in determination of goals. Prior to visiting patient, reviewed his records in the EMR in detail, spoke with his bedside nurse and with his medical team members. When I arrived, patient is lying in bed completing a nebulizer treatment. His is at bedside. After introductions, I sat down and we spoke at length, reviewing the details of this hospitalization, history of his Parkinson's and progression of symptoms, his past personal and social history and his and his 's hopes and goals. Past Medical History Significant PMH Noted: Parkinsons disease, Multiple system atrophy, Spastic hemiplegia affecting right dominant side Cervical dystonia Osteopenia History of TIA Benign essential hypertension Compression fracture of L2 Diverticulosis Congestive heart failure GERD Dementia Hyperlipidemia Depression BPH - Benign prostatic hypertrophy 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 Surgical History Dual chamber pacemaker placed 2010 CABG x 5 in 1989 Right arthroscopic knee surgery Cardiac cath - 1996 Cardiac cath with SUMA placed 2010 TURP Cataract extraction, bilateral Social History 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 Social Support: He has lived at [facility] for the last year. and children are very supportive Living Situation: As above Palliative Performance Scale PPS Patient Status: Baseline PPS Ambulation: Mainly Bed PPS Activity: Unable to do most activity PPS Self-Care: 2 person assist PPS Intake: Normal or reduced PPS Conscious Level: Full or confusion Performance Scale: 30% ADLs ADL Patient Status: Baseline ADL Ambulation: Mainly Sit/Lie ADL Dressing: Total care ADL Feeding: Considerable assistance required ADL Hygene/bathing: Mainly assistance ADL Transfers: Mainly assistance Allergy Allergies Reviewed: Yes Medications Current Medications: Current Medications Heparin Sodium (Porcine) 5,000 unit Q12 SUBQ Last administered on 08/04/16 08: 44; Admin Dose 5,000 UNIT; Start 08/03/16 at 08:30 Albuterol 2.5 mg Q2H PRN NEB; Start 08/03/16 at 03:40 Potassium Chloride 20 meq 20 meq BID PO Last administered on 08/04/16 08:42; Admin Dose 20 MEQ; Start 08/03/16 at 09:30 Potassium Chloride/Sodium Chloride 1,000 ml @ 75 mls/hr [id number] IV Last administered on 08/04/16 11:35; Admin Dose 75 MLS/HR; Start 08/03/16 at 18:10 Pantoprazole 40 mg DAILY IVPUSH Last administered on 1/27/17at 08:42; Admin Dose 40 MG; Start 08/04/16 at 08:30 Lorazepam 0.5 mg Q8 PRN IVPUSH; Start 08/03/16 at 18:55 Scheduled ([Med Plus 2.0]) 120 ML PO TID Acetaminophen (Acetaminophen) 500 Mg Tablet 1,000 MG PO BID Carbidopa/Levodopa 25-100 mg (Carbidopa/Levodopa 25-100 mg) 1 Each Tablet 3 EACH PO 5XD Carbidopa/Levodopa 25-100 mg (Sinemet 25-100 mg) 1 Each Tablet 2 TABLET PO QID Cholecalciferol (Vitamin D3) (Vitamin D3) 5,000 Unit Tablet 5,000 UNIT PO QPM Docusate Sodium (Colace) 100 Mg Capsule 100 MG PO QAM Furosemide (Furosemide) 20 Mg Tab 20 MG PO QAM Metoprolol Tartrate (Metoprolol Tartrate) 25 Mg Tablet 12.5 MG PO BID Mirtazapine (Mirtazapine) 15 Mg Tablet 15 MG PO HS Multivitamin with Minerals (Totalday Multiple) 1 Each Tablet.er 1 EACH PO QAM Niacin (Niacin) 100 Mg Tablet 100 MG PO QAM Omeprazole (Omeprazole) 20 Mg Capsule.dr 20 MG PO DAILY Oseltamivir Phosphate (Tamiflu) 75 Mg Capsule 75 MG PO BID Pantoprazole DR (Pantoprazole DR) 40 Mg Tablet.dr 40 MG PO BID Potassium Chloride (Potassium Chloride) 40 Meq/15 Ml Liquid 40 MEQ PO TIDWM Pramipexole Dihydrochloride (Mirapex) 0.5 Mg Tablet 0.5 MG PO DAILY Saliva Stimulant Agents Comb.3 (Biotene Moisturizing Mouth) 44.3 Ml [place] 15 ML MT QID Saliva Stimulant Agents Comb.3 (Biotene Moisturizing Mouth) 44.3 Ml [place] 44.3 ML MM QID Spironolactone (Spironolactone) 50 Mg Tablet 50 MG PO QAM take with 25mg tab for total dose of 75mg daily Spironolactone (Spironolactone) 25 Mg Tablet 25 MG PO QAM take with 50mg tab for total dose of 75mg daily Ubidecarenone (Coenzyme Q10) 50 Mg Tablet 50 MG PO MORNING Scheduled PRN Acetaminophen (Acetaminophen) 325 Mg Tablet 650 MG PO Q4H PRN PRN For Fever Benzonatate (Tessalon Perle) 100 Mg Capsule 100 MG PO BID PRN PRN For Cough Guaifenesin/Codeine Phosphate (Guaifenesin AC Cough Syrup) 473 Ml Liquid 5 ML PO QID PRN PRN For Cough Hydrocodone-Acetaminophen 5-325 mg (Hydrocodone-Acetaminophen 5-325 mg) 1 Each Tablet 1 EACH PO Q4H PRN PRN For Pain Lorazepam (Lorazepam) 0.5 Mg Tablet 0.5 MG PO QID PRN PRN For Anxiety or Agitation Magnesium Hydroxide (Milk of Magnesia) 400 Mg/5 Ml Oral.susp 30 ML PO DIRECTED PRN PRN For Constipation Ondansetron (Zofran) 8 Mg Tablet 8 MG PO QID PRN PRN For Nausea Tizanidine (Tizanidine) 2 Mg Tablet 2 MG PO TID PRN PRN For Spasm Objective Findings Exam Vital Sign - Last Date Time Temp Pulse Resp B/P Pulse Ox O2 Delivery O2 Flow Rate FiO2 08/04/16 12:51 37.0 75 16 147/75 95 Nasal Cannula 2.00 Intake and Output 08/03/16 08/03/16 08/04/16 Cumulative From/Thru 15:00 23:00 07:00 07/31/16 00:10 - 08/04/16 06:22 Intake Total 675 ml 564 ml 4348 ml Balance 675 ml 564 ml 4348 ml Intake Oral 0 ml 200 ml IV Total 675 ml 564 ml 4148 ml # Voids 3 3 16 # Bowel Movements 2 Objective Chronically ill-appearing man lying in bed. Vital signs noted. Torticollis of the neck. Deep wet cough which is weak. Skin is warm and dry. Lungs with coarse upper airway sounds diffusely. Heart sounds distant, mostly obscured but regular. Abdomen without tenderness or masses. Extremities with rigidity and tremor consistent with his Parkinson's. Lab/Diagnostics Lab and Imaging results reviewed in detail in EMR. Time spent Total time 90 minutes; >50% face to face with patient and family, providing counselling regarding plans and recommendations, and in care coordination with his medical teams. Of the above total time, 35 minutes counseling for advanced care planning with the patient and his , reviewing end-of-life goals and treatment options copies to: Denice Pedersen MD, Jason Hooker MD Aug 04, 2016 13:38
--- NOTE | 2016-08-04 14:26 | NUR ---
Social Work Note: D/A: SW informed during rounds that the Pt has denied a feeding tube and that Palliative Care was consulted. Hospice Info Visit also requested. SW met with the Pt and the Pt's Kimberly at bedside to discuss these concerns and if they would be interested in a Hospice Info Visit. The Pt and the Pt's are agreeable. SW called Hospice of the and requested a visit, Hospice visit scheduled for 3pm. R[place] met with the Pt and the Pt's later in the day after Palliative Care consult completed. The Pt's reports that the Pt's diet will be changed back to a regular diet, see notes from Nutrition/Palliative Care consult. SW will continue to follow. P: Pt likely to be discharge back to [facility] when medically ready. Palliative Care consult and Hospice Info Visit recommended by MD during rounds, agreeable. See notes regarding Palliative Care consult. Hospice Info Visit request completed and scheduled for 3pm. SW will continue to follow. SIDRA [facility]le Care Specialist Kateryna [facility], PROCEDURE RN, ACM
--- NOTE | 2016-08-04 15:53 | NUR ---
Diet change Pt. changed to general diet, no restrictions. Pt. very happy about this change. present in room helping him eat small amounts at time. HOB up.
--- NOTE | 2016-08-04 21:04 | NUR ---
[facility] MEDS At administration of 2030 medications, pt started coughing after a small spoon of pudding and could not swallow pills. Pt continued to have coughing fits, RT gave nebulizer, and continued coughing fits after intermittently. Withheld Remeron, metoprolol, and potassium. Will reassess later when giving Sinemet for safe swallowing.
[2016-08-05] VITALS (7 sets, daily range): BP systolic 118–155; BP diastolic 63–70; PULSE 67–82; RESP 18–22; O2SAT 90–97
[2016-08-05] MEDS: 0.9% NaCl + KCl 20 mEq/L 1,000 ML IV SCH ×2 (00:32→10:10)
--- NOTE | 2016-08-05 00:37 | PCM.PNMED ---
Subjective Date of Service Aug 05, 2016 Subjective He remains very alert and awake. He has no new complaints. Exam Vital Signs Vital Sign - Last Date Time Temp Pulse Resp B/P Pulse Ox O2 Delivery O2 Flow Rate FiO2 08/04/16 20:50 77 20 95 Nasal Cannula 2.00 08/04/16 20:26 36.5 133/76 Intake and Output 08/04/16 08/04/16 08/05/16 Cumulative From/Thru 15:00 23:00 07:00 07/31/16 00:10 - 08/04/16 18:35 Intake Total 1105 ml 5453 ml Balance 1105 ml 5453 ml Intake Oral 100 ml 300 ml IV Total 1005 ml 5153 ml # Voids 16 # Bowel Movements 2 Exam General: Patient is resting comfortably in no apparent distress. Patient remains alert but is having more difficulty with his speech today. HEENT: Head is atraumatic normocephalic. Eyes: Pupils are equally round and reactive to light and accommodation. Extraocular muscles are intact. Sclera are white anicteric. Subconjunctival mucosa is pink. Ears and nose are unremarkable. Oropharynx: There is no mucosal lesions, there is no thrush, there is no pharyngitis. Neck: Is supple, there are no nodes, or masses, or tenderness. Chest: Is clear to auscultation and percussion. There are no rales, rhonchi, wheezes or rubs. Heart: Rate, rhythm is regular. There is no murmur, rub or gallop. Abdomen: Good bowel sounds are present. Abdomen is soft, nontender, no organomegaly or masses were appreciated. Extremities: Are symmetrical and well perfused. There is no edema, there is no cellulitis, no rash. Patient exhibits an intention tremor. Neurologic: There are no focal neurological deficits. Cranial nerves II through XII are intact. There are no sensory or motor deficits. Psychiatric: Patients mood is calm and shows no sign of agitation. Genital: Deferred Rectal: Deferred Lab and Diagnostics Result Diagram: 08/04/16 0710 08/04/16 0710 X-Rays, CTs and MRIs CXR: IMPRESSION: 1. Marked gaseous distention of the stomach. 2. Small right pleural effusion. 3. Pulmonary scar or a left lateral pulmonary mass. If further characterization is warranted, CT of the chest may be helpful. Dictated by: Savannah Barr M.D. on 07/30/2016 at 20:51 Assessment & Plan Patient is an 80 year old male with a history of rapidly progressive Parkinson' s disease, hemiplegia, CAD, HTN, and anemia. Admitted for possible aspiration pneumonia Aspiration, acute, present on admission. -- Patient with history of aspiration pneumonia. -- Patient's diet is now restricted to the point where he will likely not meet his daily caloric requirements -- Currently no change on chest x-ray will follow-up with CT -- Discontinued Unasyn 1500 mg Q6H. -- Continue Zosyn every 12 as the patient does come from a nursing facility -- Continue to monitor labs -- Consult speech therapy re-evaluation. Patient has been reduced to a stim diet. -- Continue supplemental O2 to maintain O2 saturation above 92%. -- DuoNeb BEATRICE. Abdominal pain does not appear to be a significant problem for the patient -- CT of the abdomen did not reveal source of abdominal pain Parkinsons disease, chronic, however rapidly progressive. -- With multiple system atrophy, dementia, spastic hemiplegia affecting right dominant side, and cervical dystonia. -- Dr. Dorian Gupta managing with Carbidopa-Levodopa, Mirapex, tizanidine and botox injections. -- Will continue Sinemet 2 tablets five times daily, Mirapex HS, Tizanidine 2 mg PRN. -- Recurrent aspiration Hypertension, chronic, presume stable. -- Continue metoprolol tartrate 12. mg BID, spironolactone 75 mg daily and Lasix 20 mg daily. -- Will monitor BMP. Depression, chronic, presume stable. -- Continue mirtazapine 30 mg HS. CAD s/p CABG, presume stable. -- According to recent outpatient med list patient currently not taking anything for this. GERD, chronic. -- Continue pantoprazole 40 mg daily. History of congestive heart failure, likely diastolic. -- Last echo found from 2010 shows preserved EF. -- Patient appears to be well compensated at this time. -- Antiemetic available PRN. -- Bowel regimen available PRN. -- Tylenol available PRN mild pain, fever. -- Hydrocodone-acetaminophen 5/325 mg available Q4 PRN pain. -- Lorazepam available PRN anxiety/agitation. Disposition: The patient presented with leukocytosis from possible aspiration pneumonia. The patient was started on Unasyn but did not seem to be responding well to treatment. Zosyn was started and the patient seemed to respond well. The patient is not quite as well as he was 2 days ago according to the patient' s . The patient's white blood cell count decreased significantly from 20.3 down to 8.4. I had an Advanced Care Planning discussion for 30 minutes with the patient, the patient's and the patient's son yesterday. The daughter could not be in attendance that she is in [place]. The explains to me that the patient's Parkinson's disease has been unusually progressive. As the patient's diet has been heavily restricted lower than what would likely be able to meet his daily caloric requirement. I asked the patient who is fully awake and alert and in his right mind if he would like a feeding tube placed. The patient adamantly said no several times when asked questions in several different ways. This was clearly evident to both the patient's and the patient's son. I recommended that the patient have a palliative care consultation and potentially have a hospice evaluation as his condition will only worsen over time despite our best efforts at keeping him healthy. The and the patient' s son agree with this plan. Palliative care consult was appreciated and hospice met with the patient today and the plan will be to discharge to [facility] with hospice in the next 24- 48 hours. I discussed this again with patient's and she is agreeable with this plan. PCP: Denice Pedersen MD Neurology: Dorian Gupta MD Pain Evaluation: Adequate Pain Control GI Prophylaxis: Proton Pump Inhibitor VTE Prophylaxis: Sub-Q Heparin (Unfractionated) VTE Mechanical Devices: Intermittant Pneumatic CD Resuscitation Status: DNR/DNI:Do Not Resuscitate/Intubate Thuan Simmons MD Aug 05, 2016 00:37
[2016-08-05] MEDS: SALIVA SUBSTITUTE PO SCH ×2 (06:14→11:30)
--- NOTE | 2016-08-05 07:10 | NUR ---
Coughing [place] patient coughing. Reported just drank water (thin). Raised HOB. Removed water from bedside.
[2016-08-05] MEDS: Albuterol-Ipratropium 3 mL Inhalation Solution NEB SCH ×3 (07:54→16:20)
[2016-08-05] MEDS ORDERED: levoFLOXacin 500 mg Tablet PO SCH (08:30)
[2016-08-05] MEDS: Heparin 5,000 Unit/mL Inj SUBQ SCH (08:48)
[2016-08-05] MEDS: Pantoprazole 4 mg/mL 10 mL Inj IVPUSH SCH (08:48)
[2016-08-05] MEDS: Potassium Chloride 20 mEq SR Tablet PO SCH (08:51)
--- NOTE | 2016-08-05 12:16 | NUR ---
mouth moisture use mouth swab with mouth moisture vs spray.
--- NOTE | 2016-08-05 12:56 | NUR ---
Social Work: Discharge Readiness Data & assessment: EMR Reviewed. Patient is a 80 y/o male on his sixth day of hospitalization. Patient was discussed in daily rounds and physician reported the the patient is medically ready for discharge to [facility] with [facility]. SW spoke with patient and patient and notified them of the physicians plan to discharge the patient and they voiced understanding and was in agreement. SW spoke with Eloise at [facility] and she stated that they were able to accept the patient back and that they would pick the patient up at 4:15. SW notified patient's nurse of pick-up time. RALEIGH spoke with Lucie at [facility] and notified her that the patient is discharging today. [facility] has spoke with the patient's and will admit the patient tomorrow. SW will continue to follow. Plan: Patient will discharge to [facility] via [facility] transport. Patient will be admitted to Hospice on 08/06/16. SW will follow. Nicole Edmonds LMSW, ELEANOR
--- NOTE | 2016-08-05 15:15 | NUR ---
Nutrition/mobility/resp status Pt able to tolerate about 50% of meals. Coughing present Enc to take small sips of fluids. Pt total 2 person assist with bed mobility Bedrest Suction x2 just in the mouth, reporting phlegm Minimal amount present.
--- NOTE | 2016-08-05 15:56 | PCM.DIMED ---
Discharge Instructions Date of Service Aug 05, 2016 Dates of Hospitalization Jul 30, 2016 at 23:17 Discharge Diagnosis Discharge Diagnosis Recurrent Aspiration Pneumonia Diet Other (Honey Dietrich Thick ) Activity No restrictions (As Tolerated) Call your provider Fever or Chills, Shortness of breath, Bleeding, Chest pain Patient Instructions Follow-up Provider: Denice Frias MD Follow-up with PCP in: 1 week Additional Information Hospice [facility] is to enroll patient tomorrow Thuan Simmons MD Aug 05, 2016 15:56
[2016-08-05] MEDS ORDERED: METR500T PO (16:04)
[2016-08-05] MEDS ORDERED: IPRA3AMP NEB (16:04)
[2016-08-05] MEDS ORDERED: LEVO500T16 PO (16:04)
[2016-08-05] MEDS ORDERED: ALBU2.5V4 NEB (16:04)
[2016-08-05] MEDS ORDERED: HEPA500017 SUBQ (16:04)
--- NOTE | 2016-08-05 16:26 | NUR ---
Report to [facility] Report given to Maritza at [facility]. Answered all questions. Gave return call number in case she has questions. Addendum: 08/05/16 at 1714 by HOUSTON LEIGH RN 1700 Carry me transport here. Elan lift up to w/ch [address] to left elbow about 2 cm in diameter. placed steri-strips, telfa and bandaid to cover. present at time of discharge and planning to follow in her private vehicle. All belongings taken.
--- NOTE | 2016-08-06 01:02 | PCM.DC.MED ---
Discharge Summary Date of Service Aug 05, 2016 Dates of Hospitalization Date of Hospital Admission Jul 30, 2016 at 23:17 Date of Discharge: Aug 05, 2016 Providers: Admitting Physician: Sandrine oCrmier DO Primary Care Physician: Denice Pedersen MD Attending Physician: Sandrine Cormier DO Diagnosis at Time of Discharge Diagnosis at Time of Discharge Recurrent Aspiration Pneumonia Procedures XRay, CTs & MRIs CXR: IMPRESSION: 1. Marked gaseous distention of the stomach. 2. Small right pleural effusion. 3. Pulmonary scar or a left lateral pulmonary mass. If further characterization is warranted, CT of the chest may be helpful. Dictated by: Savannah Barr M.D. on 07/30/2016 at 20:51 Brief History Patient is an 80 year old male with a history of Parkinson's disease, hemiplegia , CAD, HTN, and anemia. He presented to [facility] on 07/30/16 from [facility] where he is a permanent resident. Report given to the ED staff was that the patient had an episode of vomiting that he most likely aspirated. Additional history is limited as the patient is somnolent throughout this H&P. The patient 's is at the bedside but was not present for the incident. The report she received was that the patient had been coughing and wheezing, then had an episode of vomiting. The reports approximately 1 week history of congested -sounding cough. She was not informed of any fever or chills, no other episodes of vomiting or diarrhea. There has been a mild decrease in appetite over the last few days. He has a history of aspiration causing pneumonia. At baseline the patient is wheelchair bound with no use of his legs. He has also lost much of the use of his arms and is fed by others. He does eat regular food. His speech is quite slurred but he can communicate some. He does use 2L O2 at baseline. In the ED the patient is afebrile, heart 76, respiratory rate 21, blood pressure 138/73, and O2 saturation 99% on 15L via no-rebreather. Labs remarkable for WBC 12. Due to the patient's history of aspiration pneumonia, patient was admitted to the hospitalist service for evaluation and treatment of pneumonia/pneumonitis. Hospital Course Patient is an 80 year old male with a history of rapidly progressive Parkinson' s disease, hemiplegia, CAD, HTN, and anemia. Admitted for possible aspiration pneumonia Aspiration, acute, present on admission. -- Patient with history of aspiration pneumonia. -- Patient's diet is now restricted to the point where he will likely not meet his daily caloric requirements -- Currently no change on chest x-ray will follow-up with CT -- Discontinued Unasyn 1500 mg Q6H. -- Continue Zosyn every 12 as the patient does come from a nursing facility -- Continue to monitor labs -- Consult speech therapy re-evaluation. Patient has been reduced to a stim diet. -- Continue supplemental O2 to maintain O2 saturation above 92%. -- DuoNeb BEATRICE. Abdominal pain does not appear to be a significant problem for the patient -- CT of the abdomen did not reveal source of abdominal pain Parkinsons disease, chronic, however rapidly progressive. -- With multiple system atrophy, dementia, spastic hemiplegia affecting right dominant side, and cervical dystonia. -- Dr. Dorian Gupta managing with Carbidopa-Levodopa, Mirapex, tizanidine and botox injections. -- Will continue Sinemet 2 tablets five times daily, Mirapex HS, Tizanidine 2 mg PRN. -- Recurrent aspiration Hypertension, chronic, presume stable. -- Continue metoprolol tartrate 12. mg BID, spironolactone 75 mg daily and Lasix 20 mg daily. -- Will monitor BMP. Depression, chronic, presume stable. -- Continue mirtazapine 30 mg HS. CAD s/p CABG, presume stable. -- According to recent outpatient med list patient currently not taking anything for this. GERD, chronic. -- Continue pantoprazole 40 mg daily. History of congestive heart failure, likely diastolic. -- Last echo found from 2010 shows preserved EF. -- Patient appears to be well compensated at this time. -- Antiemetic available PRN. -- Bowel regimen available PRN. -- Tylenol available PRN mild pain, fever. -- Hydrocodone-acetaminophen 5/325 mg available Q4 PRN pain. -- Lorazepam available PRN anxiety/agitation. Disposition: The patient presented with leukocytosis from possible aspiration pneumonia. The patient was started on Unasyn but did not seem to be responding well to treatment. Zosyn was started and the patient seemed to respond well. The patient is not quite as well as he was 2 days ago according to the patient' s . The patient's white blood cell count decreased significantly from 20.3 down to 8.4. I had an Advanced Care Planning discussion for 30 minutes with the patient, the patient's and the patient's son yesterday. The daughter could not be in attendance that she is in [place]. The explains to me that the patient's Parkinson's disease has been unusually progressive. As the patient's diet has been heavily restricted lower than what would likely be able to meet his daily caloric requirement. I asked the patient who is fully awake and alert and in his right mind if he would like a feeding tube placed. The patient adamantly said no several times when asked questions in several different ways. This was clearly evident to both the patient's and the patient's son. I recommended that the patient have a palliative care consultation and potentially have a hospice evaluation as his condition will only worsen over time despite our best efforts at keeping him healthy. The and the patient' s son agree with this plan. Palliative care consult was appreciated and hospice met with the patient today and the plan will be to discharge to [facility] with hospice today. [facility] will enroll patient tomorrow at [facility] I discussed this again with the patient and the patient's and they are agreeable with this plan. PCP: Denice Pedersen MD Neurology: Dorian Gupta MD Exam Vital Signs (Last) Date Time Temp Pulse Resp B/P Pulse Ox O2 Delivery O2 Flow Rate FiO2 08/05/16 16:21 77 20 90 Room Air 08/05/16 11:42 08/05/16 09:00 36.5 139/70 Exam General: Patient is resting comfortably in no apparent distress. Patient remains alert and responsive today. Patient continues to have trouble with speech but makes a very good effort to communicate. HEENT: Head is atraumatic normocephalic. Eyes: Pupils are equally round and reactive to light and accommodation. Extraocular muscles are intact. Sclera are white anicteric. Subconjunctival mucosa is pink. Ears and nose are unremarkable. Oropharynx: There is no mucosal lesions, there is no thrush, there is no pharyngitis. Neck: Is supple, there are no nodes, or masses, or tenderness. Chest: Is clear to auscultation and percussion. There are no rales, rhonchi, wheezes or rubs. Heart: Rate, rhythm is regular. There is no murmur, rub or gallop. Abdomen: Good bowel sounds are present. Abdomen is soft, nontender, no organomegaly or masses were appreciated. Extremities: Are symmetrical and well perfused. There is no edema, there is no cellulitis, no rash. Patient exhibits an intention tremor. Neurologic: There are no focal neurological deficits. Cranial nerves II through XII are intact. There are no sensory or motor deficits. Psychiatric: Patients mood is calm and shows no sign of agitation. Genital: Deferred Rectal: Deferred Test 07/30/16 20:15 08/04/16 07:10 Hold Purple Top Tube Received (Received) Hold Blue Top Tube Received (Received) Hold Red Top Tube Received (Received) Hold [place] Top Tube Received (Received) White Blood Count 7.8th/mm3 (3.8-10.1) Red Blood Count 4.50mil/mm3 (4.40-5.80) Hemoglobin 11.6g/dL (13.8-17.2) Hematocrit 37.4% (41.0-50.0) Mean Corpuscular Volume 83.1fL (81-100) Mean Corpuscular Hemoglobin 25.8pg (27.0-35.0) Mean Corpuscular Hemoglobin Concent 31.0% (32.0-37.0) Red Cell Distribution Width 16.4% (12.3-15.4) Platelet Count 158bil/L (150-400) Neutrophils (%) (Auto) 75.7% (40-74) Lymphocytes (%) (Auto) 13.4% (14-46) Monocytes (%) (Auto) 8.1% (4-12) Eosinophils (%) (Auto) 2.2% (0-5) Basophils (%) (Auto) 0.3% (0-3) Sodium Level 147mEq/L (134-144) Potassium Level 4.0mEq/L (3.5-5.2) Chloride Level 110mEq/L (97-108) Carbon Dioxide Level 22mmol/L (18-29) Blood Urea Nitrogen 16mg/dL (8-27) Creatinine 0.82mg/dL (0.76-1.27) Estimat Glomerular Filtration Rate 96mL/min (>59) Glucose Level 75mg/dL (60-99) Calcium Level 8.6mg/dL (8.5-10.1) Phosphorus Level 3.1mg/dL (2.5-4.9) Magnesium Level 1.9mg/dL (1.6-2.6) Total Bilirubin 0.7mg/dL (0.0-1.2) Aspartate Amino Transf (AST/SGOT) 27U/L (0-50) Alanine Aminotransferase (ALT/SGPT) 5U/L (0-44) Alkaline Phosphatase 77U/L (25-160) Total Protein 5.4g/dL (6.4-8.4) Albumin 3.1g/dL (3.4-5.0) Procalcitonin 0.30ng/mL (See Comment) Discharge Medications Discharge Medications ([Med Plus 2.0]) 120 ML PO TID (Reported) Acetaminophen (Acetaminophen) 500 Mg Tablet 1,000 MG PO BID (Reported) Carbidopa/Levodopa 25-100 mg (Carbidopa/Levodopa 25-100 mg) 1 Each Tablet 3 EACH PO 5XD (Reported) Carbidopa/Levodopa 25-100 mg (Sinemet 25-100 mg) 1 Each Tablet 2 TABLET PO QID ( Reported) Cholecalciferol (Vitamin D3) (Vitamin D3) 5,000 Unit Tablet 5,000 UNIT PO QPM ( Reported) Docusate Sodium (Colace) 100 Mg Capsule 100 MG PO QAM (Reported) Furosemide (Furosemide) 20 Mg Tab 20 MG PO QAM (Reported) Heparin Sodium,Porcine (Heparin Sodium) 5,000 Unit/1 Ml Vial 5,000 UNIT SUBQ Q12 Prescribed by: ERIKA BONILLA MD Ipratropium/Albuterol Sulfate (Iprat-Albut 0.5-3(2.5) mg/3 mL Inhalant Soln) 3 Ml Ampul.neb 3 ML NEB QIDWA Prescribed by: ERIKA BONILLA MD Levofloxacin (Levaquin) 500 Mg Tablet 500 MG PO DAILYAC Prescribed by: ERIKA BONILLA MD Metoprolol Tartrate (Metoprolol Tartrate) 25 Mg Tablet 12.5 MG PO BID (Reported ) Metronidazole (Flagyl) 500 Mg Tablet 500 MG PO Q8 Prescribed by: ERIKA BONILLA MD Mirtazapine (Mirtazapine) 15 Mg Tablet 15 MG PO HS Prescribed by: DILEEP DAVIS Multivitamin with Minerals (Totalday Multiple) 1 Each Tablet.er 1 EACH PO QAM ( Reported) Niacin (Niacin) 100 Mg Tablet 100 MG PO QAM (Reported) Omeprazole (Omeprazole) 20 Mg Capsule.dr 20 MG PO DAILY (Reported) Pantoprazole DR (Pantoprazole DR) 40 Mg Tablet.dr 40 MG PO BID Prescribed by: NICOLA DEL ROSARIO MD Potassium Chloride (Potassium Chloride) 40 Meq/15 Ml Liquid 40 MEQ PO TIDWM ( Reported) Pramipexole Dihydrochloride (Mirapex) 0.5 Mg Tablet 0.5 MG PO DAILY Prescribed by: DILEEP DAVIS Saliva Stimulant Agents Comb.3 (Biotene Moisturizing Mouth) 44.3 Ml [place] 15 ML MT QID (Reported) Saliva Stimulant Agents Comb.3 (Biotene Moisturizing Mouth) 44.3 Ml [place] 44.3 ML MM QID (Reported) Spironolactone (Spironolactone) 50 Mg Tablet 50 MG PO QAM (Reported) take with 25mg tab for total dose of 75mg daily Spironolactone (Spironolactone) 25 Mg Tablet 25 MG PO QAM (Reported) take with 50mg tab for total dose of 75mg daily Ubidecarenone (Coenzyme Q10) 50 Mg Tablet 50 MG PO MORNING (Reported) As needed Acetaminophen (Acetaminophen) 325 Mg Tablet 650 MG PO Q4H PRN PRN For Fever ( Reported) Albuterol Neb Soln (Albuterol Neb Soln) 2.5 Mg/3 Ml Vial.neb 2.5 MG NEB Q2H PRN PRN For Wheezing Prescribed by: ERIKA BONILLA MD Benzonatate (Tessalon Perle) 100 Mg Capsule 100 MG PO BID PRN PRN For Cough Prescribed by: GHAZAL SHELDON MD Guaifenesin/Codeine Phosphate (Guaifenesin AC Cough Syrup) 473 Ml Liquid 5 ML PO QID PRN PRN For Cough (Reported) Hydrocodone-Acetaminophen 5-325 mg (Hydrocodone-Acetaminophen 5-325 mg) 1 Each Tablet 1 EACH PO Q4H PRN PRN For Pain Prescribed by: NICOLA DEL ROSARIO MD Lorazepam (Lorazepam) 0.5 Mg Tablet 0.5 MG PO QID PRN PRN For Anxiety or Agitation Prescribed by: NICOLA DEL ROSARIO MD Magnesium Hydroxide (Milk of Magnesia) 400 Mg/5 Ml Oral.susp 30 ML PO DIRECTED PRN PRN For Constipation (Reported) Ondansetron (Zofran) 8 Mg Tablet 8 MG PO QID PRN PRN For Nausea (Reported) Tizanidine (Tizanidine) 2 Mg Tablet 2 MG PO TID PRN PRN For Spasm (Reported) Followup Plan Disposition: Patient is being discharged to [facility] to be enrolled in hospice tomorrow. Discharge Diet: Other (Honey [place] Thick ) Discharge Activity: No restrictions (As Tolerated) Follow-up Provider: Denice Frias MD Follow-up with PCP in: 1 week Time spent Time spent on discharging this patient was greater than 35 minutes, over half of which was involved in counseling and coordination of care. Thuan Bonilla MD Aug 06, 2016 01:02
--- NOTE | 2016-08-07 11:33 | NUR ---
Palliative care note (late note for 08/04/16, entered on 08/07/16) D/A: Palliative care consult referral kindly received today from Dr. Simmons. Pt is a 80 yom who is currently experiencing aspiration pneumonia in the face of severe, rapidly progressing Parkinson's. Referral is for goals of care. Pt to be seen by Dr. Phillips. P: Palliative to follow. Genoveva AUGUST, CCM
== END 2016-08-05 17:05 | DRG 178 ==
LOC: SED 20:12 → OBSVTOIN 23:17 → MOC 23:17
PROVIDERS: ADMIT Internal Medicine; ATTEND Internal Medicine
DX: J69.0 Pneumonitis due to inhalation of food and vomit (principal); G81.11 Spastic hemiplegia affecting right dominant side; I50.30 Unspecified diastolic (congestive) heart failure; I10 Essential (primary) hypertension; Z95.1 Presence of aortocoronary bypass graft; Z95.0 Presence of cardiac pacemaker; I25.10 Atherosclerotic heart disease of native coronary artery without angina pectoris; E78.5 Hyperlipidemia, unspecified; K21.9 Gastro-esophageal reflux disease without esophagitis; G20 Parkinson's disease; F02.80 Dementia in other diseases classified elsewhere, unspecified severity, without behavioral disturbance, psychotic disturbance, mood disturbance, and anxiety; Z66 Do not resuscitate; F32.9 Major depressive disorder, single episode, unspecified; Z51.5 Encounter for palliative care